=== PATIENT | female | born 1950 | race Caucasian/White ===

== ENCOUNTER 2016-06-07 04:14 | Emergency (ER) | payer MEDICARE, OTHER ==
--- NOTE | 2016-06-07 04:25 | ED Physician Documentation ---
General Adult - HISTORIAN Historian: patient - HPI Stated Complaint: Congestion, sob Chief Complaint: General Adult Onset: days ago Timing: still present Severity: moderate Further Comments: yes (Pt os a 65 yo female with nasal congestion and says that the congestion is making it difficult to breathe through her nose so that she becomes sob. No chest pain, n/v, diaphoresis. Pt has hx COPD, asthma and has been using her home O2 more than usual due to sob.) - ROS CONST: other (malaise) EYES/ENT: nasal drainage, nasal congestion CVS/RESP: shortness of breath (2nd to congestion) GI/: none MS/SKIN/LYMPH: none - PAST HX Past History: other (Asthma, COPD, GERD, HTN) Allergies/Adverse Reactions: Allergies Allergy/AdvReac Type Severity Reaction Status Date / Time adhesive Allergy Mild Rash Verified 06/07/16 04:56 amoxicillin [Amoxicillin] Allergy Mild Rash Verified 06/07/16 04:56 diphenhydramine HCl Allergy Mild Rash Verified 06/07/16 04:56 [From Benadryl] lisinopril Allergy Mild Rash Verified 06/07/16 04:56 doxycycline Allergy Verified 06/07/16 04:56 losartan [Losartan] Allergy Verified 06/07/16 04:56 codeine [Codeine] AdvReac Mild Rash Verified 06/07/16 04:56 Home Medications: Ambulatory Orders Medication Instructions Recorded Albuterol Sulfate 2.5 mg INH TID 05/01/16 Albuterol Sulfate [Proair HFA] 2 puff INH Q4 PRN 05/01/16 Diltiazem HCl [Diltiazem 24Hr Cd] 120 mg PO D 05/01/16 Fluticasone Propionate 220 Mcg 50 mcg COURTNEY BID 05/01/16 [Flovent Hfa] Fluticasone/Vilanterol [Breo 100 mcg INH D 05/01/16 Ellipta 100-25 Mcg INH] Gabapentin 300 mg PO TID 05/01/16 Lovastatin [Mevacor] 10 mg PO D 05/01/16 Montelukast Sodium [Singulair] 10 mg PO HS 05/01/16 Omeprazole [Prilosec] 20 mg PO D 05/01/16 Roflumilast [Daliresp] 500 mcg PO D 05/01/16 Sertraline HCl [Zoloft] 50 mg PO D 05/01/16 Tiotropium [place] [Spiriva] 1 puff INH D 05/01/16 Valsartan 80 mg PO D 05/01/16 - SOCIAL HX Smoking History: quit greater than 1 year, secondhand - FAMILY HX Family History: No - VITAL SIGNS Vital Signs: Vital Signs Temp Pulse Resp BP Pulse Ox 148/72 05/01/16 02:40 - REVIEWED ASSESSMENTS Nursing Assessment Reviewed: Yes Vitals Reviewed: Yes Progress - Progress Progress: CXR: Findings: Examination of the chest in single portable AP view 06/07/2016 0501 hours with comparison to examination of 05/01/2016 demonstrates lungs to be hyperinflated with diminished lung markings in the upper lung zones consistent with changes of emphysema. The cardiovascular and mediastinal silhouettes are stable. The aorta is atherosclerotic. There is prominence of the central pulmonary arteries consistent with pulmonary arterial hypertension. ER Solu-medrol 80 mg IV Duoneb HFN Rx Bactrim DS. Take one by mouth every 12 hrs for 10 days, 1st dose in ER. Prednisone 50 mg. Take one daily for 5 days. Nasal washes, once or twice daily. Continue flonase and other home medications. - EKG/XRAY/CT EKG: NSR (HR=85; normal axis; normal MD interval; normal EKG.) General Adult Physical Exam - PHYSICAL EXAM GENERAL APPEARANCE: moderate distress EENT: eye inspection normal, pharynx normal, other (sinus fullness) NECK: normal inspection, supple RESPIRATORY: chest non-tender, breath sounds normal, other (pt c/o resp distress 2ndary to congestion) CVS: reg rate & rhythm, heart sounds normal ABDOMEN: soft, no organomegaly, normal bowel sounds BACK: normal inspection, no CVA tenderness SKIN: warm/dry, normal color EXTREMITIES: non-tender, normal range of motion, no evidence of injury, no edema NEURO: oriented X3, motor nml, sensation nml Discharge Clincal Impression: Sinusitis Qualifiers: Sinusitis location: unspecified location Chronicity: acute Recurrence: not specified as recurrent Qualified Code(s): J01.90 - Acute sinusitis, unspecified Referrals: Robina Locke MD [Primary Care Provider] - Home Medications: Ambulatory Orders Albuterol Sulfate 2.5 mg INH TID 05/01/16 Albuterol Sulfate [Proair HFA] 2 puff INH Q4 PRN 05/01/16 Diltiazem HCl [Diltiazem 24Hr Cd] 120 mg PO D 05/01/16 Fluticasone Propionate 220 Mcg [Flovent Hfa] 50 mcg COURTNEY BID 05/01/16 Fluticasone/Vilanterol [Breo Ellipta 100-25 Mcg INH] 100 mcg INH D 05/01/16 Gabapentin 300 mg PO TID 05/01/16 Lovastatin [Mevacor] 10 mg PO D 05/01/16 Montelukast Sodium [Singulair] 10 mg PO HS 05/01/16 Omeprazole [Prilosec] 20 mg PO D 05/01/16 Roflumilast [Daliresp] 500 mcg PO D 05/01/16 Sertraline HCl [Zoloft] 50 mg PO D 05/01/16 Tiotropium [place] [Spiriva] 1 puff INH D 05/01/16 Valsartan 80 mg PO D 05/01/16 Condition: Good Disposition: 01 HOME, SELF-CARE Decision to Admit: NO Decision Time: 05:48
[2016-06-07 04:48] LABS: BASOPHILS % 0.4 (0.0-1.5); EOSINOPHILS % 2.4 % (0.0-6.8); LYMPHOCYTES # 1.3 # k/uL (0.6-4.0); MEAN CORPUSCULAR HEMOGLOBIN 26.2 pg (28.0-34.0); MONOCYTES # 0.5 # k/uL (0.0-0.9); MONOCYTES % 5.7 % (0.0-11.0); NEUTROPHILS # 6.4 # k/uL (1.4-7.7)
[2016-06-07] MEDS ORDERED: methylPREDNISolone SOD SUCC 40 MG/ML VIAL IVP ONE (04:49)
[2016-06-07 05:02] LABS: eGFR (African) > 60; eGFR (Non-African) > 60
[2016-06-07] MEDS ORDERED: IPRATROPIUM/ALBUTEROL SULFATE 3 ML AMPUL.NEB NEB ONE (05:18)
--- NOTE | 2016-06-07 05:51 | Diagnostic Imaging Report ---
[facility] [address] [facility] [address] [place], [place]. [address] ~ ~ ~ ~ Report Submission Date: Jun 07, 2016 5:14:15 AM MATERIAL CLERK Patient ~ Study Name: JUNE ROWE ~ Date: Jun 07, 2016 5:01:06 AM MATERIAL CLERK MRN: [id number] ~ Modality Type: CR Gender: F ~ Description: CHEST : 46 ~ Institution: [facility] Physician: CHRISTAL PARRA ~ ~ ~ ~ Chest - one-view Clinical history: ~Shortness of breath. ~Nasal congestion. Findings: ~Examination of the chest in single portable AP view 06/07/2016 0501 hours with comparison to examination of 05/01/2016 demonstrates lungs to be hyperinflated with diminished lung markings in the upper lung zones consistent with changes of emphysema. ~The cardiovascular and mediastinal silhouettes are stable. ~The aorta is atherosclerotic. ~There is prominence of the central pulmonary arteries consistent with pulmonary arterial hypertension. Impression: 1. ~No significant change. 2. ~Aortic atherosclerosis. 3. ~Emphysema. 4. ~Pulmonary arterial hypertension. ~ Electronically signed on Jun 07, 2016 5:14:15 AM MATERIAL CLERK by: Presley EUCEDA
[2016-06-07] MEDS ORDERED: SULFAMETHOXAZOLE/TRIMETHOPRIM 1 EACH TABLET PO ONE ×3 (05:52→05:55)
[2016-06-07 06:37] VITALS: BP 115/94
[2016-06-07] MEDS ORDERED: SULFAMETHOXAZOLE/TRIMETHOPRIM 1 EACH TABLET PO SCH (09:00)
== END 2016-06-07 06:30 | disposition home or self-care (01) ==
LOC: ED 04:14
DX: J01.90 Acute sinusitis, unspecified (principal); J44.1 Chronic obstructive pulmonary disease with (acute) exacerbation; Z99.81 Dependence on supplemental oxygen
CPT/HCPCS: 71010; 80053; 82550; 84484; 85025; 93005; 96374; 99283; A9270; J1030; J2920; S1016

== ENCOUNTER 2016-06-24 20:12 | Emergency (ER) | payer MEDICARE, OTHER ==
[2016-06-24 21:05] LABS: BASOPHILS % 0.2 (0.0-1.5); EOSINOPHILS % 0.9 % (0.0-6.8); LYMPHOCYTES # 0.9 # k/uL (0.6-4.0); MONOCYTES # 0.2 # k/uL (0.0-0.9); MONOCYTES % 3.7 % (0.0-11.0); NEUTROPHILS # 5.4 # k/uL (1.4-7.7)
[2016-06-24 21:17] LABS: eGFR (African) > 60; eGFR (Non-African) > 60
--- NOTE | 2016-06-24 21:44 | ED Physician Documentation ---
Upper Respiratory Symptoms - HISTORIAN Historian: patient - HPI Stated Complaint: Shortness of Breath Chief Complaint: Cough/ Upper Respiratory Onset: other (06/07/16) Duration: constant Context: denies: recent foreign travel, insect bite(s), tick(s), recent chemotherapy Severity: moderate Associated Symptoms: runny nose, sinus pain, sinus drainage, productive cough Further Comments: yes (65 year old female patient presents with complaints of cough, congestion, sinus headache and SOB. C/O being unable to breath due "being stopped up".) - ROS CONST/EYES: denies: weakness, eye redness, eye itching CVS/RESP: shortness of breath. denies: chest pain, palpitations LYMPH: denies: leg swelling, rash, ankle swelling GI/: none. denies: nausea, diarrhea NEURO/PSYCH: denies: fainting, dizziness MS/SKIN: denies: joint pain, muscle aches, rash - PAST HX Lung Disease: COPD, other (O2 daily) PE Risk Factors: hypertension Other History: other (GI bleed, HLD) Surgeries/Procedures: other (cataract, TKR, Exp lap - endometriosis) Allergies/Adverse Reactions: Allergies Allergy/AdvReac Type Severity Reaction Status Date / Time adhesive Allergy Mild Rash Verified 06/24/16 20:23 amoxicillin [Amoxicillin] Allergy Mild Rash Verified 06/24/16 20:23 diphenhydramine HCl Allergy Mild Rash Verified 06/24/16 20:23 [From Benadryl] lisinopril Allergy Mild Rash Verified 06/24/16 20:23 doxycycline Allergy Verified 06/24/16 20:23 losartan [Losartan] Allergy Verified 06/24/16 20:23 codeine [Codeine] AdvReac Mild Rash Verified 06/24/16 20:23 Home Medications: Ambulatory Orders Medication Instructions Recorded Albuterol Sulfate 2.5 mg INH TID 05/01/16 Albuterol Sulfate [Proair HFA] 2 puff INH Q4 PRN 05/01/16 Diltiazem HCl [Diltiazem 24Hr Cd] 120 mg PO DAILY 05/01/16 Fluticasone Propionate 220 Mcg 50 mcg COURTNEY BID 05/01/16 [Flovent Hfa] Fluticasone/Vilanterol [Breo 100 mcg INH DAILY 05/01/16 Ellipta 100-25 Mcg INH] Gabapentin 300 mg PO TID 05/01/16 Lovastatin [Mevacor] 10 mg PO DAILY 05/01/16 Montelukast Sodium [Singulair] 10 mg PO HS 05/01/16 Omeprazole [Prilosec] 20 mg PO DAILY 05/01/16 Roflumilast [Daliresp] 500 mcg PO DAILY 05/01/16 Sertraline HCl [Zoloft] 50 mg PO DAILY 05/01/16 Tiotropium [place] [Spiriva] 1 puff INH DAILY 05/01/16 Valsartan 80 mg PO DAILY 05/01/16 Levofloxacin [Levaquin] 500 mg PO DAILY #7 tablet 06/24/16 Levofloxacin [Levofloxacin] 500 mg PO DAILY 06/24/16 - SOCIAL HX Smoking History: non-smoker, quit greater than 1 year - FAMILY HX Family History: denies: none - VITAL SIGNS Vital Signs: Vital Signs Temp Pulse Resp BP Pulse Ox 98.7 F 99 H 26 H 153/88 98 06/24/16 20:15 06/24/16 21:30 06/24/16 20:15 06/24/16 20:15 06/24/16 21:30 - REVIEWED ASSESSMENTS Nursing Assessment Reviewed: Yes Vitals Reviewed: Yes Progress - Progress Progress: Extensive discussion with patient regarding lab and CT findings. Strongly encouraged to follow up with ENT, phone numbers provided. Patient states she has an appointment with medical consultant on Wednesday. Will treat with IM depo medrol , due to significant nasal mucosal edema, will continue 1 week of levaquin. Patient has PCN allergy, unsure of cephalosporin. Needs sinus culture. Lab and disc sent with patient to take to pulm. appointment. ED Results Lab/Radiology - Lab Results Lab Results: Lab Results 06/24/16 06/24/16 06/24/16 20:55 20:55 20:55 WBC 6.80 K/ul K/ul (4.00-12.00) RBC 4.58 M/ul M/ul (3.90-5.20) Hgb 11.9 g/dL L g/dL (12.0-16.0) Hct 37.6 % % (34.5-46.5) MCV 82.1 fl fl (80.0-100.0) MCH 26.0 pg L pg (28.0-34.0) MCHC 31.6 g/dL g/dL (30.0-36.0) RDW 14.1 % % (11.3-14.3) Plt Count 241 K/mm3 K/mm3 (130-400) Neut % (Auto) 79.9 % H % (39.0-79.0) Lymph % (Auto) 13.8 % L % (16.0-50.0) [place] % (Auto) 3.7 % % (0.0-11.0) Eos % (Auto) 0.9 % % (0.0-6.8) Baso % (Auto) 0.2 (0.0-1.5) Neut # 5.4 # k/uL # k/uL (1.4-7.7) Lymph # 0.9 # k/uL # k/uL (0.6-4.0) [place] # 0.2 # k/uL # k/uL (0.0-0.9) Eos # 0.1 # k/uL # k/uL (0.0-0.6) Baso # 0.0 # k/uL # k/uL (0.0-0.5) Reactive Lymphs % 1.5 % % (0.0-5.0) Reactive Lymphs # 0.1 # k/uL # k/uL (0.0-0.8) Sodium 137 mmol/L mmol/L (136-145) Potassium 3.5 mmol/L mmol/L (3.5-5.0) Chloride 100 mmol/L mmol/L (98-110) Carbon Dioxide 27 mmol/L mmol/L (20-32) BUN 7 mg/dL L mg/dL (10-26) Creatinine 0.6 mg/dL mg/dL (0.4-1.5) Estimated Creat Clear 137 Est GFR ( Amer) > 60 (60 - ) Est GFR (Non-Af Amer) > 60 (60 - ) Glucose 113 mg/dL H mg/dL (70-99) Calcium 9.8 mg/dL mg/dL (8.5-10.5) Total Bilirubin 0.3 mg/dL mg/dL (0.2-1.2) AST 19 U/L U/L (0-41) ALT 14 U/L U/L (0-45) Alkaline Phosphatase 80 U/L U/L (46-116) NT-Pro-B Natriuret Pep 19.8 pg/mL pg/mL (15.0-125.0) Total Protein 7.2 g/dL g/dL (6.0-8.5) Albumin 4.8 g/dL g/dL (3.0-5.5) - Radiology Radiology Impressions: CT sinuses History: Sinusitis Technique: Images through the paranasal sinuses were obtained without contrast. Multiplanar reconstructions were performed. Findings: Significant mucous membrane thickening is noted in the maxillary sinuses, frontal sinuses, ethmoid air cells and right sphenoid sinus. There is no air fluid level or abnormal bone destruction. There is no fracture. Impression: Pansinusitis. Chest, PA and lateral, 3 images History: Cough Findings: No infiltrate, effusion or pneumothorax is present. The lungs are hyperinflated, consistent with emphysema. Heart size and pulmonary vascularity are normal. Since 07 June 2016, no significant change has occurred. Impression: 1. Emphysema. 2. No new abnormality. - Orders Orders: ED Orders Category Date Time Status Continuous EKG monitoring Q30M Care 06/24/16 20:26 Active Continuous Pulse Oximetry Q30M Care 06/24/16 20:[address] Saline Lock/IV NOW Care 06/24/16 20:26 Active CHEST 2 VIEW [CHEST P.A.&LAT 2 VIEWS] [RAD] Stat Exams 06/24/[address] MAXILLOFACIAL W/O DYE Stat Exams 06/24/16 Taken CBC/PLATELET/DIFF Stat Lab 06/24/16 20:55 Completed CMP Stat Lab 06/24/16 20:55 Completed NT-proBNP Stat Lab 06/24/16 20:55 Completed UA W/MICRO IF INDICATED Stat Lab 06/24/16 20:26 Ordered methylPREDNISolone ACETATE [Depo-Medrol] Med 06/24/16 21:53 Once 80 mg IM NOW ONE Oxygen Daily Oxygen 06/24/16 20:30 Ordered Upper Respiratory Symptoms - EXAM General Appearance: mild distress EENT: eyes nml inspection, lids & conjunct. nml, PERRL, ear nml, pain over sinuses, frontal, maxillary, ethmoid, mucosal edema (left nare with significant mucosal edema vs polyp), purulent nasal drainage, pharynx nml, airway nml Respiratory: no resp. 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 Neuro/Psych: oriented x3, neuro intact, mood/affect nml, CN's nml as tested Discharge Clincal Impression: Cough Pansinusitis Qualifiers: Chronicity: acute Recurrence: non-recurrent Qualified Code(s): J01.40 - Acute pansinusitis, unspecified Prescriptions: Levofloxacin [Levaquin] 500 mg PO DAILY #7 tablet Referrals: Robina Locke MD [Primary Care Provider] - 2 Days Home Medications: Ambulatory Orders Albuterol Sulfate 2.5 mg INH TID 05/01/16 Albuterol Sulfate [Proair HFA] 2 puff INH Q4 PRN 05/01/16 Diltiazem HCl [Diltiazem 24Hr Cd] 120 mg PO DAILY 05/01/16 Fluticasone Propionate 220 Mcg [Flovent Hfa] 50 mcg COURTNEY BID 05/01/16 Fluticasone/Vilanterol [Breo Ellipta 100-25 Mcg INH] 100 mcg INH DAILY 05/01/16 Gabapentin 300 mg PO TID 05/01/16 Lovastatin [Mevacor] 10 mg PO DAILY 05/01/16 Montelukast Sodium [Singulair] 10 mg PO HS 05/01/16 Omeprazole [Prilosec] 20 mg PO DAILY 05/01/16 Roflumilast [Daliresp] 500 mcg PO DAILY 05/01/16 Sertraline HCl [Zoloft] 50 mg PO DAILY 05/01/16 Tiotropium [place] [Spiriva] 1 puff INH DAILY 05/01/16 Valsartan 80 mg PO DAILY 05/01/16 Levofloxacin [Levaquin] 500 mg PO DAILY #7 tablet 06/24/16 Levofloxacin [Levofloxacin] 500 mg PO DAILY 06/24/16 Condition: Stable Disposition: HOME, SELF-CARE Decision to Admit: NO Decision Time: 22:13
[2016-06-24] MEDS ORDERED: methylPREDNISolone ACETATE 80 MG/ML VIAL IM ONE (21:53)
[2016-06-24 22:17] VITALS: BP 143/89
--- NOTE | 2016-06-25 07:15 | Diagnostic Imaging Report ---
[facility] [address] [facility].[address] [address] Report Submission Date: Jun 24, 2016 9:28:09 PM ASSEMBLY REPAIRER Patient Study Name: JUNE ROWE Date: Jun 24, 2016 8:50:43 PM ASSEMBLY REPAIRER MRN: [id number] Modality Type: CR Gender: F Description: CHEST : 46 Institution: [facility] Physician: DANIELE RUBIN Chest, PA and lateral, 3 images History: Cough Findings: No infiltrate, effusion or pneumothorax is present. The lungs are hyperinflated, consistent with emphysema. Heart size and pulmonary vascularity are normal. Since 07 June 2016, no significant change has occurred. Impression: 1. Emphysema. 2. No new abnormality. Electronically signed on Jun 24, 2016 9:28:09 PM ASSEMBLY REPAIRER by: Dell EUCEDA
--- NOTE | 2016-06-25 07:16 | Diagnostic Imaging Report ---
[facility] [address] [facility] [address] [address] Report Submission Date: Jun 24, 2016 9:37:56 PM CONE TREATER Patient Study Name: JUNE ROWE Date: Jun 24, 2016 9:04:35 PM CONE TREATER MRN: [id number] Modality Type: CT\SR Gender: F Description: CT MAXILLOFACIAL W/O D : 46 Institution: [facility] Physician: DANIELE RUBIN CT sinuses History: Sinusitis Technique: Images through the paranasal sinuses were obtained without contrast. Multiplanar reconstructions were performed. Findings: Significant mucous membrane thickening is noted in the maxillary sinuses, frontal sinuses, ethmoid air cells and right sphenoid sinus. There is no air fluid level or abnormal bone destruction. There is no fracture. Impression: Pansinusitis. Electronically signed on Jun 24, 2016 9:37:56 PM CONE TREATER by: Dell EUCEDA
== END 2016-06-24 22:15 | disposition home or self-care (01) ==
LOC: ED 20:12
DX: J01.40 Acute pansinusitis, unspecified (principal); R05 Cough
CPT/HCPCS: 70486; 71020; 80053; 83880; 85025; J1040; 87400; 96372; 99282; S1016

== ENCOUNTER 2016-08-27 02:44 | Emergency (ER) | payer MEDICARE, OTHER ==
[2016-08-27] MEDS: IPRATROPIUM/ALBUTEROL SULFATE 3 ML AMPUL.NEB NEB ONE (03:10)
[2016-08-27 03:25] VITALS: BP 167/69
[2016-08-27 03:46] LABS: BASOPHILS % 0.5 (0.0-1.5); EOSINOPHILS % 1.7 % (0.0-6.8); LYMPHOCYTES # 1.2 # k/uL (0.6-4.0); MEAN CORPUSCULAR HEMOGLOBIN 26.3 pg (28.0-34.0); MONOCYTES # 0.3 # k/uL (0.0-0.9); MONOCYTES % 3.2 % (0.0-11.0); NEUTROPHILS # 6.9 # k/uL (1.4-7.7)
[2016-08-27 03:51] LABS: eGFR (African) > 60; eGFR (Non-African) > 60
--- NOTE | 2016-08-27 04:01 | ED Physician Documentation ---
General Adult - HISTORIAN Historian: patient - HPI Stated Complaint: Increased Dyspnea, increased sinus congestion and cough Chief Complaint: General Adult Onset: days ago Timing: worse Further Comments: yes (65 year old female patient presents with nasal congestion , SOB and dyspnea related to her nasal drainage. States she can't breath through her nose, "my oxygen isn't helping") - ROS CONST: recent illness (pansinusitis) EYES/ENT: sore throat, nasal drainage, nasal congestion CVS/RESP: shortness of breath, cough. denies: chest pain GI/: none MS/SKIN/LYMPH: none NEURO/PSYCH: headache. denies: fainting, dizziness, difficulty with speech, anxiety - PAST HX Past History: COPD, hypertension Other History: other (Pansinusitis, GI bleed, HLD) Allergies/Adverse Reactions: Allergies Allergy/AdvReac Type Severity Reaction Status Date / Time adhesive Allergy Mild Rash Verified 08/27/16 03:12 amoxicillin [Amoxicillin] Allergy Mild Rash Verified 08/27/16 03:12 diphenhydramine HCl Allergy Mild Rash Verified 08/27/16 03:12 [From Benadryl] lisinopril Allergy Mild Rash Verified 08/27/16 03:12 doxycycline Allergy Verified 08/27/16 03:12 losartan [Losartan] Allergy Verified 08/27/16 03:12 codeine [Codeine] AdvReac Mild Rash Verified 08/27/16 03:12 Home Medications: Ambulatory Orders Medication Instructions Recorded Albuterol Sulfate 2.5 mg INH TID 05/01/16 Albuterol Sulfate [Proair HFA] 2 puff INH Q4 PRN 05/01/16 Diltiazem HCl [Diltiazem 24Hr Cd] 120 mg PO DAILY 05/01/16 Fluticasone Propionate 220 Mcg 50 mcg COURTNEY BID 05/01/16 [Flovent Hfa] Fluticasone/Vilanterol [Breo 100 mcg INH DAILY 05/01/16 Ellipta 100-25 Mcg INH] Gabapentin 300 mg PO TID 05/01/16 Lovastatin [Mevacor] 10 mg PO DAILY 05/01/16 Montelukast Sodium [Singulair] 10 mg PO HS 05/01/16 Omeprazole [Prilosec] 20 mg PO DAILY 05/01/16 Roflumilast [Daliresp] 500 mcg PO DAILY 05/01/16 Sertraline HCl [Zoloft] 50 mg PO DAILY 05/01/16 Valsartan 80 mg PO DAILY 05/01/16 Levofloxacin [Levaquin] 500 mg PO DAILY #10 tablet 08/27/16 Methylprednisolone [Medrol] 4 mg PO DAILY #1 tab.ds.pk 08/27/16 Umeclidinium [place] [Incruse 1 puff IH D 08/27/16 Ellipta] - SOCIAL HX Smoking History: quit greater than 1 year - FAMILY HX Family History: Yes - VITAL SIGNS Vital Signs: Vital Signs Temp Pulse Resp BP Pulse Ox 98.1 F 91 H 24 167/69 90 L 08/27/16 02:45 08/27/16 02:45 08/27/16 02:45 08/27/16 02:45 08/27/16 02:45 - REVIEWED ASSESSMENTS Nursing Assessment Reviewed: Yes Vitals Reviewed: Yes Progress - Progress Progress: At discharge patient reports she went to the ENT doctor in [place], completed a 21 day antibiotic and steroid course along with allergy testing. Patient cannot recall name of antibiotic. Will treat with levaquin and medrol dose pack. Instructed to follow up with ENT. ED Results Lab/Radiology - Lab Results Lab Results: Lab Results 08/27/16 08/27/16 03:20 03:20 WBC 8.70 K/ul K/ul (4.00-12.00) RBC 4.96 M/ul M/ul (3.90-5.20) Hgb 13.1 g/dL g/dL (12.0-16.0) Hct 41.4 % % (34.5-46.5) MCV 83.4 fl fl (80.0-100.0) MCH 26.3 pg L pg (28.0-34.0) MCHC 31.6 g/dL g/dL (30.0-36.0) RDW 15.0 % H % (11.3-14.3) Plt Count 210 K/mm3 K/mm3 (130-400) Neut % (Auto) 78.8 % % (39.0-79.0) Lymph % (Auto) 14.4 % L % (16.0-50.0) [place] % (Auto) 3.2 % % (0.0-11.0) Eos % (Auto) 1.7 % % (0.0-6.8) Baso % (Auto) 0.5 (0.0-1.5) Neut # 6.9 # k/uL # k/uL (1.4-7.7) Lymph # 1.2 # k/uL # k/uL (0.6-4.0) [place] # 0.3 # k/uL # k/uL (0.0-0.9) Eos # 0.2 # k/uL # k/uL (0.0-0.6) Baso # 0.0 # k/uL # k/uL (0.0-0.5) Reactive Lymphs % 1.4 % % (0.0-5.0) Reactive Lymphs # 0.1 # k/uL # k/uL (0.0-0.8) Sodium 142 mmol/L mmol/L (136-145) Potassium 3.3 mmol/L L mmol/L (3.5-5.0) Chloride 108 mmol/L mmol/L (98-110) Carbon Dioxide 30 mmol/L mmol/L (20-32) BUN 9 mg/dL L mg/dL (10-26) Creatinine 0.6 mg/dL mg/dL (0.4-1.5) Estimated Creat Clear 134 Est GFR ( Amer) > 60 (60 - ) Est GFR (Non-Af Amer) > 60 (60 - ) Glucose 112 mg/dL H mg/dL (70-99) Calcium 9.8 mg/dL mg/dL (8.5-10.5) Total Bilirubin 0.4 mg/dL mg/dL (0.2-1.2) AST 22 U/L U/L (0-41) ALT 20 U/L U/L (0-45) Alkaline Phosphatase 76 U/L U/L (46-116) Total Protein 7.7 g/dL g/dL (6.0-8.5) Albumin 5.1 g/dL g/dL (3.0-5.5) - Radiology Radiology Impressions: Chest - two views Clinical history: Dyspnea since yesterday. Congestion. Findings: Examination of the chest in PA and lateral views with comparison to examination of 06/24/2016 demonstrates lungs to be hyperinflated with increase in the AP diameter the chest consistent with changes of emphysema. Cardiovascular and mediastinal silhouettes are stable. There is no coalescent infiltrate. Impression: 1. No significant change. 2. Emphysema. Electronically signed on Aug 27, 2016 3:44:49 AM CDT by: Presley Zavala - Orders Orders: ED Orders Category Date Time Status CHEST 2 VIEW [CHEST P.A.&LAT 2 VIEWS] [RAD] Stat Exams 08/27/16 Ordered CBC/PLATELET/DIFF Stat Lab 08/27/16 03:20 Completed CMP Stat Lab 08/27/16 03:20 Completed Ipratropium/Albuterol Sulfate [Duoneb] Med 08/27/16 02:58 Discontinued 3 ml NEB NOW ONE Oxygen Daily Oxygen 08/27/16 03:00 Ordered General Adult Physical Exam - PHYSICAL EXAM GENERAL APPEARANCE: mild distress EENT: eye inspection normal, pharynx normal, no signs of dehydration, JEMAL, no nystagmus, TM's nml, purulent nasal drainage, other (tenderness over ethmoid sinus, frontal and maxillary) RESPIRATORY: no resp distress, chest non-tender, breath sounds normal CVS: reg rate & rhythm, heart sounds normal, equal pulses, no murmur, no gallop , PMI nml, no JVD, no friction rub, 24 ABDOMEN: soft, no organomegaly, normal bowel sounds, no abdominal bruit, no distension SKIN: normal color, warm/dry, NR, INT, PAL, DR EXTREMITIES: non-tender, normal range of motion, no evidence of injury, no edema , J, 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: oriented X3, CN's nml as tested, motor nml, sensation nml, mood/affect nml Discharge Clincal Impression: Sinusitis Qualifiers: Sinusitis location: ethmoidal Chronicity: acute Recurrence: recurrent Qualified Code(s): J01.21 - Acute recurrent ethmoidal sinusitis Pansinusitis Qualifiers: Chronicity: acute Recurrence: recurrent Qualified Code(s): J01.41 - Acute recurrent pansinusitis Prescriptions: Levofloxacin [Levaquin] 500 mg PO DAILY #10 tablet Referrals: Robina Locke MD [Primary Care Provider] - 2 Days Additional Instructions: airflight attendants supervisor an over the counter decongestant at your pharmacy for patient's with hypertension. You may want to try Vicks rub on your chest and/or feet Cough drops as needed for cough and sore throat. Increase your fluid intake juices, hot tea, non-caffeinated beverages Use a humidifier in the room where you sleep. You can also sit in a steam filled bathroom 1-2 times a day. Tylenol or Ibuprofen as needed for fever, pain and body aches. Start daily allergy medication such as Claritin, Daisy or Zyrtec. Start a daily nasal spray such as Flonase or Nasonex You may benefit from the use of a netti pot follow package instructions. See your primary care doctor after you have completed your antibiotic if you symptoms have not resolved. Many times it takes multiple rounds of antibiotics to resolve a sinus infection. Home Medications: Ambulatory Orders Albuterol Sulfate 2.5 mg INH TID 05/01/16 Albuterol Sulfate [Proair HFA] 2 puff INH Q4 PRN 05/01/16 Diltiazem HCl [Diltiazem 24Hr Cd] 120 mg PO DAILY 05/01/16 Fluticasone Propionate 220 Mcg [Flovent Hfa] 50 mcg COURTNEY BID 05/01/16 Fluticasone/Vilanterol [Breo Ellipta 100-25 Mcg INH] 100 mcg INH DAILY 05/01/16 Gabapentin 300 mg PO TID 05/01/16 Lovastatin [Mevacor] 10 mg PO DAILY 05/01/16 Montelukast Sodium [Singulair] 10 mg PO HS 05/01/16 Omeprazole [Prilosec] 20 mg PO DAILY 05/01/16 Roflumilast [Daliresp] 500 mcg PO DAILY 05/01/16 Sertraline HCl [Zoloft] 50 mg PO DAILY 05/01/16 Valsartan 80 mg PO DAILY 05/01/16 Levofloxacin [Levaquin] 500 mg PO DAILY #10 tablet 08/27/16 Methylprednisolone [Medrol] 4 mg PO DAILY #1 tab.ds.pk 08/27/16 Umeclidinium [place] [Incruse Ellipta] 1 puff IH D 08/27/16 Condition: Stable Disposition: 01 HOME, SELF-CARE Decision to Admit: NO Decision Time: 04:01
--- NOTE | 2016-08-27 20:42 | Diagnostic Imaging Report ---
[facility] [id number] [facility].[address] [address] Report Submission Date: Aug 27, 2016 3:44:49 AM CDT Patient Study Name: JUNE ROWE Date: Aug 27, 2016 3:27:04 AM CDT MRN: [id number] Modality Type: CR Gender: F Description: CHEST : 46 Institution: [facility] Physician: JM SANABRIA (LOAN ANALYST) - ER Chest - two views Clinical history: Dyspnea since yesterday. Congestion. Findings: Examination of the chest in PA and lateral views with comparison to examination of 06/24/2016 demonstrates lungs to be hyperinflated with increase in the AP diameter the chest consistent with changes of emphysema. Cardiovascular and mediastinal silhouettes are stable. There is no coalescent infiltrate. Impression: 1. No significant change. 2. Emphysema. Electronically signed on Aug 27, 2016 3:44:49 AM CDT by: Presley EUCEDA
== END 2016-08-27 04:15 | disposition home or self-care (01) ==
LOC: ED 02:44
DX: J01.21 Acute recurrent ethmoidal sinusitis (principal); J01.41 Acute recurrent pansinusitis
CPT/HCPCS: 71020; 80053; 85025; 99283

== ENCOUNTER 2018-04-22 20:46 | Inpatient (IN) | payer MEDICARE, OTHER ==
[2018-04-22] MEDS ORDERED: methylPREDNISolone SOD SUCC 125 MG/2 ML VIAL IVP ONE (21:04)
[2018-04-22] MEDS ORDERED: IPRATROPIUM/ALBUTEROL SULFATE 3 ML AMPUL.NEB NEB ONE (21:04)
[2018-04-22 21:28] LABS: MEAN CORPUSCULAR HEMOGLOBIN 24.3 pg (28.0-34.0); MONOCYTES % 2.9 % (0.0-11.0)
[2018-04-22 21:29] LABS: BASOPHILS % 0.3 (0.0-1.5); EOSINOPHILS % 1.2 % (0.0-6.8); NEUTROPHILS # 13.6 # k/uL (1.4-7.7)
[2018-04-22] MEDS ORDERED: ALBUTEROL SULFATE 2.5 MG/3 ML AMPUL.NEB NEB ONE (21:41)
--- NOTE | 2018-04-22 21:42 | ED Physician Documentation ---
General Adult - HISTORIAN Historian: patient - HPI Stated Complaint: shortness of air Chief Complaint: Dyspnea Onset: other (since end of march ) Timing: still present, worse Severity: mild Further Comments: yes (She reports increased congestion and shortness of air for last few weeks and she was treated by her PCP with Levaquin and steriods (both ended 04.11.2018) and she denies any relief in symptoms. She states over the last few days her shortness of air has increased. No fever. Cough is tightening . No swelling. No rash. No sick contacts . She reports last Albuterol neb was about 2 hours ago with mild relief) Last known Well Code/Unknown Code: Unknown - ROS CONST: weakness EYES/ENT: nasal drainage, nasal congestion CVS/RESP: shortness of breath, cough. denies: chest pain GI/: denies: abdominal pain, vomiting, nausea MS/SKIN/LYMPH: denies: rash NEURO/PSYCH: denies: headache, dizziness - PAST HX Past History: hypertension Immunizations: UTD Allergies/Adverse Reactions: Allergies Allergy/AdvReac Type Severity Reaction Status Date / Time amoxicillin Allergy Mild Rash Verified 04/22/18 21:55 codeine Allergy Mild Rash Verified 04/22/18 21:55 doxycycline Allergy Mild Rash Verified 04/22/18 21:55 lisinopril Allergy Mild Rash Verified 04/22/18 21:55 losartan Allergy Mild Rash Verified 04/22/18 21:55 adhesive tape AdvReac Mild Rash Verified 04/22/18 21:55 Home Medications: Ambulatory Orders Medication Instructions Recorded Albuterol Sulfate [Proair HFA] 2 puff INH Q4 PRN 05/01/16 Fluticasone Propionate 220 Mcg 50 mcg COURTNEY BID 05/01/16 [Flovent Hfa] Montelukast Sodium [Singulair] 10 mg PO HS 05/01/16 Omeprazole [Prilosec] 20 mg PO DAILY 05/01/16 Sertraline HCl [Zoloft] 100 mg PO DAILY 05/01/16 Albuterol Sulfate [Proair HFA] 8.5 gm INH Q4 04/22/18 Hydrochlorothiazide 25 mg PO DAILY 04/22/18 Lovastatin [Mevacor] 10 mg PO DAILY 04/22/18 Roflumilast [Daliresp] 500 mcg PO DAILY 04/22/18 - SOCIAL HX Smoking History: quit greater than 1 year Alcohol Use: none Drug Use: none - FAMILY HX Family History: No - VITAL SIGNS Vital Signs: Vital Signs Temp Pulse Resp BP Pulse Ox 156/81 06/01/17 21:45 - REVIEWED ASSESSMENTS Nursing Assessment Reviewed: Yes Vitals Reviewed: Yes Progress - Progress Progress: 1040: discussed case with Dr Pham will admit inpt DG ED Results Lab/Radiology - Lab Results Lab Results: Lab Results 04/22/18 21:24 WBC 15.10 K/ul H K/ul (4.00-12.00) RBC 4.36 M/ul M/ul (3.90-5.20) Hgb 10.6 g/dL L g/dL (12.0-16.0) Hct 32.6 % L % (34.5-46.5) MCV 75.0 fl L fl (80.0-100.0) MCH 24.3 pg L pg (28.0-34.0) MCHC 32.5 g/dL g/dL (30.0-36.0) RDW 15.9 % H % (11.3-14.3) Plt Count 211 K/mm3 K/mm3 (130-400) Neut % (Auto) 89.9 % H % (39.0-79.0) Lymph % (Auto) 5.7 % L % (16.0-50.0) [place] % (Auto) 2.9 % % (0.0-11.0) Eos % (Auto) 1.2 % % (0.0-6.8) Baso % (Auto) 0.3 (0.0-1.5) Neut # (Auto) 13.6 # k/uL H # k/uL (1.4-7.7) Lymph # (Auto) 0.9 # k/uL # k/uL (0.6-4.0) [place] # (Auto) 0.4 # k/uL # k/uL (0.0-0.9) Eos # (Auto) 0.2 # k/uL # k/uL (0.0-0.6) Baso # (Auto) 0.1 # k/uL # k/uL (0.0-0.5) - Radiology Radiology Impressions: PA and lateral chest CLINICAL HISTORY: Shortness of breath. Difficulty breathing for 2 weeks. FINDINGS: Examination of the chest in PA and lateral views with no prior film for comparison demonstrates lungs to be hyperinflated with flattening of the hemidiaphragms and increase in the AP diameter of the chest consistent with emphysema. There is no coalescent infiltrate. Cardiac silhouette is within normal limits and the aorta is atherosclerotic. IMPRESSION: Emphysema. Aortic atherosclerosis. 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 by: Presley Zavala - Orders Orders: ED Orders Category Date Time Status IV Started NOW Care 04/22/18 21:05 Active CHEST 2VIEW [RAD] Stat Exams 04/22/18 Ordered BNP [NT-proBNP] Stat Lab 04/22/18 Ordered CBC/PLATELET/DIFF Routine Lab 04/22/18 Ordered CMP Routine Lab 04/22/18 Ordered 0.9 % Sodium Chloride [Normal Saline] 1,000 ml Med 04/22/18 21:30 Ordered IV Q8H Albuterol Sulfate [Ventolin] Med 04/22/18 21:41 Once 2.5 mg NEB NOW ONE Ipratropium/Albuterol Sulfate [Duoneb] Med 04/22/18 21:04 Discontinued 3 ml NEB NOW ONE methylPREDNISolone SOD SUCC [Solu-MEDROL] Med 04/22/18 21:04 Discontinued 125 mg IVP NOW ONE EKG WITH COMPARISON Stat Ther 04/22/18 Ordered General Adult Physical Exam - PHYSICAL EXAM GENERAL APPEARANCE: mild distress EENT: eye inspection normal, ENT inspection normal, dry mucous membranes NECK: normal inspection RESPIRATORY: wheezes, rhonchi, other (mild resp distress with speaking - 3 words with shortness of air. Post treatment increased air movement with exp wheezing through out. she reports less shortness of air ) CVS: reg rate & rhythm ABDOMEN: soft, no distension SKIN: warm/dry EXTREMITIES: non-tender, normal range of motion NEURO: oriented X3 Discharge Clincal Impression: COPD with exacerbation Referrals: Edy Salmon MD [Primary Care Provider] - 2 Days Condition: Fair Disposition: ADMITTED INPATIENT Decision to Admit: [id number] Date of Decison to Admit: 04/22/18 Decision Time: 22:41
[2018-04-22 21:49] LABS: eGFR (Non-African) > 60
[2018-04-22] MEDS: 0.9 % SODIUM CHLORIDE 1,000 ML IV SCH (22:14)
[2018-04-22] MEDS ORDERED: AZITHROMYCIN 500 MG in 0.9 % SODIUM CHLORIDE 250 ML IV SCH (23:00)
[2018-04-22] MEDS ORDERED: AZITHROMYCIN 500 MG VIAL IV ONE (23:31)
[2018-04-22] MEDS ORDERED: 0.9 % SODIUM CHLORIDE 250 ML IV ONE (23:31)
[2018-04-23] MEDS: 0.9 % SODIUM CHLORIDE 1,000 ML IV SCH ×5 (00:02→17:32)
[2018-04-23 01:22] VITALS: BMI 27.3
--- NOTE | 2018-04-23 01:24 | Diagnostic Imaging Report ---
DEJAH MISHRA [facility] [address] [facility].[address] [address] Report Submission Date: Apr 22, 2018 10:07:58 PM THROW OUT CLERK Patient Study Name: JUNE ROWE Date: Apr 22, 2018 9:36:53 PM THROW OUT CLERK Modality Type: DX Gender: F Description: CHEST : 46 Institution: [facility] Physician: DEJAH MISHRA PA and lateral chest CLINICAL HISTORY: Shortness of breath. Difficulty breathing for 2 weeks. FINDINGS: Examination of the chest in PA and lateral views with no prior film for comparison demonstrates lungs to be hyperinflated with flattening of the hemidiaphragms and increase in the AP diameter of the chest consistent with emphysema. There is no coalescent infiltrate. Cardiac silhouette is within normal limits and the aorta is atherosclerotic. IMPRESSION: Emphysema. Aortic atherosclerosis. Electronically signed on Apr 22, 2018 10:07:58 PM THROW OUT CLERK by: Presley EUCEDA
[2018-04-23 06:40] LABS: BASOPHILS % 0.2 (0.0-1.5); EOSINOPHILS % 0.9 % (0.0-6.8); MEAN CORPUSCULAR HEMOGLOBIN 24.5 pg (28.0-34.0); MONOCYTES % 0.8 % (0.0-11.0); NEUTROPHILS # 11.6 # k/uL (1.4-7.7)
[2018-04-23 06:52] LABS: eGFR (Non-African) > 60
[2018-04-23] MEDS ORDERED: FAMOTIDINE/PF 20 MG/2 ML VIAL ONE (07:09)
[2018-04-23] MEDS: PANTOPRAZOLE SODIUM 40 MG TABLET.DR PO SCH (07:10)
[2018-04-23] MEDS ORDERED: FLUTICASONE PROPIONATE IH SCH (09:00)
[2018-04-23] MEDS ORDERED: [UNRECOGNIZED DRUG - OTHER] IH SCH (09:00)
[2018-04-23] MEDS ORDERED: methylPREDNISolone SOD SUCC 125 MG/2 ML VIAL IVP SCH (09:00)
[2018-04-23] MEDS: DILTIAZEM HCL 120 MG CAP.ER.24H PO SCH (10:07)
[2018-04-23] MEDS: POTASSIUM CHLORIDE 20 MEQ TABLET.ER PO SCH (10:07)
[2018-04-23] MEDS: GABAPENTIN 300 MG CAPSULE PO SCH ×3 (10:07→17:32)
[2018-04-23] MEDS: HYDROCHLOROTHIAZIDE 25 MG TABLET PO SCH (10:07)
[2018-04-23] MEDS: POTASSIUM CHLORIDE 10 MEQ TABLET.ER PO SCH (10:07)
[2018-04-23] MEDS: SERTRALINE HCL 50 MG TABLET PO SCH (10:08)
[2018-04-23] MEDS: IPRATROPIUM/ALBUTEROL SULFATE 3 ML AMPUL.NEB NEB PRN ×3 (10:26→19:58)
--- NOTE | 2018-04-23 12:47 | History and Physical Report ---
History of Present Illnes - History of Present Illness Reason for Visit: dyspneqa History of Present Illness: Patient is a 67-year-old white female with a known history of asthma and COPD. Patient data approximately four weeks ago she developed a cough that was productive up some green to yellow phlegm. Patient was seen by a primary care physician who darted her on some Levaquin and steroids. Initially patient did see some improvement. Patient finished the course of antibiotic therapy over a week ago. Patient stated over the last 24 to 48 hours prior to admission start having some increasing dyspnea shortness of breath. Patient does have oxygen at home that she uses on appear in basis. Patient has to start using the oxygen on a regular basis and at a higher concentration with she is used to. Patient was subsequently seen in the ED and noted to be mildly hypoxic. Patient was having some wheezing. It was felt that the patient was having some bronchitis with an exacerbation of her COPD and was subsequently admitted to the hospital for further care and evaluation. - Past Medical History Cardiac: HTN, Hyperlipidemia Pulmonary: Asthma, COPD - Past Surgical History Past Surgical History: Other (uternine ablation), Total Knee Replacement, Other (lacerated artery repair) - Past Family History Mother Family History: DM, Hyperlipidemia, Hypertension Father Family History: (COPD) - Past Social History Smoke: Quit (Quit smoking about 25 years ago, 25 pk year history) Alcohol: None Lives: With Family - Health Maintenance Health Maintenance: Cholesterol, Influenza Vaccine, Pneumococcal Vaccine Influenza Vaccine: Current for this Influenza Season Pneumonia Vaccine: Yes Resuscitation Status: Resusciation Status Resuscitation Status Full Code Review of Systems - Review of Systems Constitutional: Fever, Chills. negative: Sweats Eyes: negative: pain ENT: negative: Ear Pain, Ear Discharge, Nose Pain, Nose Discharge, Nose Congestion, Mouth Pain, Mouth Swelling, Throat Pain Respiratory: Cough, Shortness of Breath, SOB with Excertion, Sputum (green), Wheezing. negative: Hemoptysis, Pleuritic Pain Cardiovascular: negative: Chest Pain, Palpitations, Orthopnea, Paroxysmal Noc. Dyspnea Gastrointestinal: negative: Nausea, Vomiting, Abdominal Pain, Diarrhea, Constipation Genitourinary: negative: Dysuria, Frequency, Incontinence Musculoskeletal: negative: Neck Pain Skin: negative: Rash, Lesions Neurological: negative: Weakness, Numbness, Incoordination, Change in Speech, Seizures - Medications/Allergies Allergies/Adverse Reactions: Allergies Allergy/AdvReac Type Severity Reaction Status Date / Time amoxicillin Allergy Mild Rash Verified 04/22/18 21:55 codeine Allergy Mild Rash Verified 04/22/18 21:55 doxycycline Allergy Mild Rash Verified 04/22/18 21:55 lisinopril Allergy Mild Rash Verified 04/22/18 21:55 losartan Allergy Mild Rash Verified 04/22/18 21:55 adhesive tape AdvReac Mild Rash Verified 04/22/18 21:55 Home Medications: Home Medications Albuterol Sulfate [Proair HFA] 8.5 gm INH Q4 04/22/18 Hydrochlorothiazide 25 mg PO DAILY 04/22/18 Lovastatin [Mevacor] 10 mg PO DAILY 04/22/18 Roflumilast [Daliresp] 500 mcg PO DAILY 04/22/18 Current Inpatient Medications: Current Inpatient Medications Albuterol/Ipratropium (Duoneb) 3 ml NEB Q4 PRN PRN Reason: Wheezing Last Admin: 04/23/18 10:26 Dose: 3 ml Diltiazem HCl (Cardizem Cd) 120 mg PO DAILY [facility] Last Admin: 04/23/18 10:07 Dose: 120 mg Fluticasone Propionate (Flovent Hfa) inh IH BID [facility] Gabapentin (Neurontin) 300 mg PO TID [facility] Last Admin: 04/23/18 10:07 Dose: 300 mg Hydrochlorothiazide (Hydrodiuril) 25 mg PO DAILY [facility] Last Admin: 04/23/18 10:07 Dose: 25 mg Sodium Chloride (Normal Saline) 1,000 mls @ 125 mls/hr IV Q8H [facility] Last Admin: 04/23/18 07:16 Dose: Not Given Sodium Chloride (Normal Saline) 1,000 mls @ 100 mls/hr IV Q10H [facility] Last Admin: 04/23/18 07:17 Dose: 100 mls/hr Azithromycin 500 mg/ Sodium (Chloride) 250 mls @ 125 mls/hr IV Q24H [facility] Stop: 05/02/18 22:59 Last Admin: 04/22/18 23:57 Dose: 125 mls/hr Methylprednisolone Sodium Succinate (Solu-Medrol) 125 mg IVP Q12 [facility] Last Admin: 04/23/18 10:07 Dose: 125 mg Montelukast Sodium (Singulair) 10 mg PO HS [facility] Pantoprazole Sodium (Protonix) 40 mg PO 0700 [facility] Last Admin: 04/23/18 07:10 Dose: 40 mg Potassium Chloride (Klor-Con 10) 10 meq PO DAILY [facility] Last Admin: 04/23/18 10:07 Dose: 10 meq Potassium Chloride (Klor-Con M20) 20 meq PO DAILY [facility] Last Admin: 04/23/18 10:07 Dose: 20 meq Sertraline HCl (Zoloft) 100 mg PO DAILY [facility] Last Admin: 04/23/18 10:08 Dose: 100 mg Simvastatin (Zocor) 20 mg PO [facility] Exam - Exam Vital Signs: Vital Signs (72 hours) 04/22/18 04/22/18 04/22/18 20:50 21:45 22:43 Temperature 97.5 F L 97.5 F L 98.0 F Pulse Rate [ 73 73 106 H Left Pulse ox] Respiratory 20 20 20 Rate Blood Pressure 109/55 [Left Arm] Blood Pressure 118/66 118/66 159/72 [Right Arm] O2 Sat by Pulse 94 98 94 Oximetry 04/22/18 04/23/18 04/23/18 22:52 02:00 02:52 Temperature 97.5 F L Pulse Rate [ 86 Left Pulse ox] Respiratory 20 Rate Blood Pressure [Left Arm] Blood Pressure 129/66 [Right Arm] O2 Sat by Pulse 94 94 94 Oximetry 04/23/18 06:00 Temperature 96.9 F L Pulse Rate [ 81 Left Pulse ox] Respiratory 20 Rate Blood Pressure [Left Arm] Blood Pressure 151/75 [Right Arm] O2 Sat by Pulse 97 Oximetry General: Alert, Oriented to Person, Oriented to Place, Oriented to Time, Cooperative, Mild distress HEENT: Atraumatic, PERRLA, Dentition Normal, Hearing Grossly Normal Neck: Normal Range of Motion. No: Stridor, Rigidity, Lymphadenopathy Lungs: Normal air movement, Speaks full Sentences, Respiratory Distress (mild), Wheezes (right), Rhonchi (few scattered). No: Rales Cardiovascular: Regular rate, Normal S1, Normal S2, No murmurs, Gallops Murmur: Systolic Murmur Abdomen: Normal bowel sounds, Soft, No tenderness, No hepatospenomegaly, No masses Integumentary: Normal, [place], Warm, Dry Extremities: No clubbing, No cyanosis, No edema Neurological: Normal gait, Normal speech, Strength Equal Bilat, Normal tone, Cranial nerves 3-12 NL, Reflexes 2+ Psych/Mental Status: Mental status NL, Mood NL, Appropriate Affect, Intact Judgment - Laboratory Results Laboratory Results: Laboratory Results 04/22/18 04/22/18 04/22/18 21:24 21:24 21:24 WBC 15.10 H RBC 4.36 Hgb 10.6 L Hct 32.6 L MCV 75.0 L MCH 24.3 L MCHC 32.5 RDW 15.9 H Plt Count 211 Neut % (Auto) 89.9 H Lymph % (Auto) 5.7 L [place] % (Auto) 2.9 Eos % (Auto) 1.2 Baso % (Auto) 0.3 Neut # (Auto) 13.6 H Lymph # (Auto) 0.9 [place] # (Auto) 0.4 Eos # (Auto) 0.2 Baso # (Auto) 0.1 Sodium 138 Potassium 3.1 L Chloride 98 Carbon Dioxide 27 BUN 8 Creatinine 0.70 Estimated Creat Clear Est GFR ( Amer) > 60 Est GFR (Non-Af Amer) > 60 Glucose 158 H Calcium 8.6 Total Bilirubin 0.4 AST 34 ALT 24 Alkaline Phosphatase 86 NT-Pro-B Natriuret Pep 81.8 Total Protein 7.1 Albumin 3.9 04/23/18 04/23/18 06:00 06:00 WBC 12.30 H RBC 4.15 Hgb 10.2 L Hct 31.0 L MCV 75.0 L MCH 24.5 L MCHC 32.7 RDW 16.4 H Plt Count 196 Neut % (Auto) 94.8 H Lymph % (Auto) 3.3 L [place] % (Auto) 0.8 Eos % (Auto) 0.9 Baso % (Auto) 0.2 Neut # (Auto) 11.6 H Lymph # (Auto) 0.4 L [place] # (Auto) 0.1 Eos # (Auto) 0.1 Baso # (Auto) 0.0 Sodium 140 Potassium 3.4 L Chloride 102 Carbon Dioxide 28 BUN 7 Creatinine 0.60 Estimated Creat Clear 130 Est GFR ( Amer) > 60 Est GFR (Non-Af Amer) > 60 Glucose 172 H Calcium 8.2 L Total Bilirubin 0.4 AST 15 ALT 30 Alkaline Phosphatase 83 NT-Pro-B Natriuret Pep Total Protein 6.0 L Albumin 3.4 L Assessment/Plan - Assessment/Plan (1) COPD with exacerbation Status: Acute Current Visit: Yes Assessment: Patient has been started on IV steroids, will continue with home meds. (2) Bronchitis Status: Acute Current Visit: Yes Assessment: Patient will be started on azithromycin. Patient will be started on high flow nebulization treatments (3) Tobacco abuse Status: Acute Current Visit: Yes Assessment: Patient believes that she will not need any nicotine patches at this time. (4) Hyperglycemia Status: Acute Current Visit: Yes Assessment: Probably related to steroid use. (5) Essential hypertension Status: Acute Current Visit: Yes Assessment: Continue with present home medications. VTE Assessment - RISK FACTOR SCORE VTE RISK FACTOR SCORES: AGE OVER 60 YEARS, ACUTE RESPIRATORY FAILURE/SEVERE COPD - RISK VTE MODERATE RISK: SCORE OF 2 (RISK PROXIMAL DVT 2-4%) PROPHYAXIS NEEDED
[2018-04-23] MEDS ORDERED: methylPREDNISolone SOD SUCC 40 MG/ML VIAL IVP SCH (21:00)
[2018-04-23] MEDS: SODIUM CHLORIDE 0.9% IV SCH (22:33)
[2018-04-23] MEDS: AZITHROMYCIN IV SCH (22:33)
[2018-04-23] MEDS: ENOXAPARIN SODIUM 30 MG/0.3 ML DISP.SYRIN SQ SCH (22:33)
[2018-04-23] MEDS: MONTELUKAST SODIUM 10 MG TABLET PO SCH (22:34)
[2018-04-23] MEDS: FLUTICASONE PROPIONATE 120 SPRAY/16 GR BOTTLE NS SCH (22:34)
[2018-04-23] MEDS: methylPREDNISolone SOD SUCC 125 MG/2 ML VIAL IVP SCH (22:36)
[2018-04-23] MEDS: SIMVASTATIN 20 MG TABLET PO SCH (22:39)
[2018-04-24] MEDS: IPRATROPIUM/ALBUTEROL SULFATE 3 ML AMPUL.NEB NEB PRN ×4 (01:05→21:45)
[2018-04-24] MEDS: 0.9 % SODIUM CHLORIDE 1,000 ML IV SCH (03:14)
[2018-04-24] MEDS: PANTOPRAZOLE SODIUM 40 MG TABLET.DR PO SCH (05:50)
[2018-04-24 07:10] LABS: BASOPHILS % 0.3 (0.0-1.5); EOSINOPHILS % 1.3 % (0.0-6.8); MEAN CORPUSCULAR HEMOGLOBIN 24.4 pg (28.0-34.0); NEUTROPHILS # 20.7 # k/uL (1.4-7.7)
[2018-04-24] MEDS: POTASSIUM CHLORIDE 20 MEQ TABLET.ER PO SCH (08:43)
[2018-04-24] MEDS: FLUTICASONE PROPIONATE 120 SPRAY/16 GR BOTTLE NS SCH ×2 (08:43→20:39)
[2018-04-24] MEDS: SERTRALINE HCL 50 MG TABLET PO SCH (08:43)
[2018-04-24] MEDS: GABAPENTIN 300 MG CAPSULE PO SCH ×3 (08:43→17:44)
[2018-04-24] MEDS: HYDROCHLOROTHIAZIDE 25 MG TABLET PO SCH (08:43)
[2018-04-24] MEDS: DILTIAZEM HCL 120 MG CAP.ER.24H PO SCH (08:43)
[2018-04-24] MEDS: POTASSIUM CHLORIDE 10 MEQ TABLET.ER PO SCH (08:45)
[2018-04-24] MEDS ORDERED: FLUTICASONE PROPIONATE 120 SPRAY/16 GR BOTTLE NS SCH (09:00)
[2018-04-24] MEDS: methylPREDNISolone SOD SUCC 125 MG/2 ML VIAL IVP SCH ×2 (09:01→20:37)
--- NOTE | 2018-04-24 12:04 | Inpatient Progress Note ---
Subjective - Required Recertification Statement I anticipate X number of days because-include discharge plan: 1 day - Review of Systems Subjective: Patient states he still is having some difficulties with breathing especially with ambulation. Patient denied any chest pain. Patient is a mild productive cough of some green to yellow phlegm. Pulmonary: Denies: Dyspnea, Cough Cardiovascular: Denies: Chest Pain, Palpitations, Orthopnea Objective - Exam Vitals and I&O: Vital Signs Temp 98.1 F 04/24/18 10:30 Pulse 87 04/24/18 10:30 Resp 18 04/24/18 10:30 BP 142/78 04/24/18 10:30 Pulse Ox 93 04/24/18 10:30 Intake & Output 04/23/18 04/24/18 04/24/18 23:59 11:59 23:59 Intake Total 3930 1070 Balance 3930 1070 Weight 172 kg Intake: IV 600 350 Left Hand 600 350 Oral 3330 720 Other: Voiding Method Toilet Toilet # Voids 1 1 General: Alert, Oriented to Person, Oriented to Place, Oriented to Time, Cooperative HEENT: Atraumatic, PERRLA, EOMI, Mouth Mucous membr. moist/[place], Nose Mucous m embr. moist/[place] Neck: Supple, No JVD, No thyromegaly Lungs: Normal air movement, Speaks full Sentences, Wheezes, Rhonchi Cardiovascular: Regular rate, Normal S1, Normal S2, No murmurs Abdomen: Normal bowel sounds, Soft, No tenderness, No hepatospenomegaly, No masses Extremities: No clubbing, No cyanosis, No edema, Normal pulses, No tenderness/swelling Skin: Normal, [place], Warm, Dry Neurological: Normal gait, Normal speech, Strength Equal Bilat, Normal tone, Sensation intact, Cranial nerves 3-12 NL, Reflexes 2+ Psych/Mental Status: Mental status NL, Mood NL, Appropriate Affect, Intact Judgment - Results Results: Laboratory Results WBC 22.20 K/ul (4.00-12.00) H 04/23/18 07:00 RBC 4.12 M/ul (3.90-5.20) 04/23/18 07:00 Hgb 10.0 g/dL (12.0-16.0) L 04/23/18 07:00 Hct 0.0 % (34.5-46.5) L 04/23/18 07:00 MCV 75.0 fl (80.0-100.0) L 04/23/18 07:00 MCH 24.4 pg (28.0-34.0) L 04/23/18 07:00 MCHC 32.3 g/dL (30.0-36.0) 04/23/18 07:00 RDW 15.9 % (11.3-14.3) H 04/23/18 07:00 Plt Count 230 K/mm3 (130-400) 04/23/18 07:00 Neut % (Auto) 93.3 % (39.0-79.0) H 04/23/18 07:00 Lymph % (Auto) 2.1 % (16.0-50.0) L 04/23/18 07:00 [place] % (Auto) 3.0 % (0.0-11.0) 04/23/18 07:00 Eos % (Auto) 1.3 % (0.0-6.8) 04/23/18 07:00 Baso % (Auto) 0.3 (0.0-1.5) 04/23/18 07:00 Neut # (Auto) 20.7 # k/uL (1.4-7.7) H 04/23/18 07:00 Lymph # (Auto) 0.0 # k/uL (0.6-4.0) L 04/23/18 07:00 [place] # (Auto) 0.7 # k/uL (0.0-0.9) 04/23/18 07:00 Eos # (Auto) 0.3 # k/uL (0.0-0.6) 04/23/18 07:00 Baso # (Auto) 0.1 # k/uL (0.0-0.5) 04/23/18 07:00 Sodium 140 mmol/L (136-145) 04/23/18 06:00 Potassium 3.4 mmol/L (3.5-5.1) L 04/23/18 06:00 Chloride 102 mmol/L (98-107) 04/23/18 06:00 Carbon Dioxide 28 mmol/L (22-30) 04/23/18 06:00 BUN 7 mg/dL (7-17) 04/23/18 06:00 Creatinine 0.60 mg/dL (0.52-1.04) 04/23/18 06:00 Estimated Creat Clear 130 04/23/18 06:00 Est GFR ( Amer) > 60 (60-) 04/23/18 06:00 Est GFR (Non-Af Amer) > 60 (60-) 04/23/18 06:00 Glucose 172 mg/dL (74-106) H 04/23/18 06:00 Calcium 8.2 mg/dL (8.4-10.2) L 04/23/18 06:00 Total Bilirubin 0.4 mg/dL (0.2-1.3) 04/23/18 06:00 AST 15 U/L (15-46) 04/23/18 06:00 ALT 30 U/L (13-69) 04/23/18 06:00 Alkaline Phosphatase 83 U/L (38-126) 04/23/18 06:00 NT-Pro-B Natriuret Pep 81.8 pg/mL (15.0-125.0) 04/22/18 21:24 Total Protein 6.0 g/dL (6.3-8.2) L 04/23/18 06:00 Albumin 3.4 g/dL (3.5-5.0) L 04/23/18 06:00 Assessment/Plan - Assessment/Plan (1) COPD with exacerbation Status: Acute Assessment: Will continue at present medications and treatment. Patient is having some hyperglycemia probably related to the steroid therapy. Patient does have a leukocytosis again probably related to the steroid therapy. (2) Bronchitis Status: Acute Assessment: Will continue with azithromycin. (3) Tobacco abuse Status: Acute Assessment: Will encourage the patient to remain off of tobacco. (4) Hyperglycemia Status: Acute (5) Essential hypertension Status: Acute
[2018-04-24] MEDS: TIOTROPIUM BROMIDE INHALER IH SCH (13:47)
[2018-04-24] MEDS: ENOXAPARIN SODIUM 30 MG/0.3 ML DISP.SYRIN SQ SCH (20:38)
[2018-04-24] MEDS: SODIUM CHLORIDE 0.9% IV SCH (20:39)
[2018-04-24] MEDS: AZITHROMYCIN IV SCH (20:39)
[2018-04-24] MEDS: SALINE FLUSH 10 ML DISP.SYRIN IV SCH (20:42)
[2018-04-24] MEDS: MONTELUKAST SODIUM 10 MG TABLET PO SCH (20:42)
[2018-04-24] MEDS: SIMVASTATIN 20 MG TABLET PO SCH (20:42)
[2018-04-25] MEDS: PANTOPRAZOLE SODIUM 40 MG TABLET.DR PO SCH (05:51)
[2018-04-25] MEDS: IPRATROPIUM/ALBUTEROL SULFATE 3 ML AMPUL.NEB NEB PRN (06:02)
[2018-04-25 07:28] LABS: eGFR (Non-African) > 60
[2018-04-25 07:34] LABS: MEAN CORPUSCULAR HEMOGLOBIN 24.3 pg (28.0-34.0)
[2018-04-25 07:51] LABS: ANISOCYTOSIS 1+ (NEGATIVE); BASOPHILS % 1 % (0-2); EOSINOPHILS % 0 % (0-7); MONOCYTES % 1 % (0-11); SEGMENTED NEUTROPHILS % 86 % (39-79)
[2018-04-25] MEDS: DILTIAZEM HCL 120 MG CAP.ER.24H PO SCH (08:30)
[2018-04-25] MEDS: POTASSIUM CHLORIDE 10 MEQ TABLET.ER PO SCH (08:30)
[2018-04-25] MEDS: GABAPENTIN 300 MG CAPSULE PO SCH (08:30)
[2018-04-25] MEDS: POTASSIUM CHLORIDE 20 MEQ TABLET.ER PO SCH (08:30)
[2018-04-25] MEDS: HYDROCHLOROTHIAZIDE 25 MG TABLET PO SCH (08:30)
[2018-04-25] MEDS: FLUTICASONE PROPIONATE 120 SPRAY/16 GR BOTTLE NS SCH (08:31)
[2018-04-25] MEDS: SERTRALINE HCL 50 MG TABLET PO SCH (08:31)
[2018-04-25] MEDS: TIOTROPIUM BROMIDE INHALER IH SCH (08:31)
[2018-04-25] MEDS: methylPREDNISolone SOD SUCC 125 MG/2 ML VIAL IVP SCH (08:31)
[2018-04-25] MEDS: SALINE FLUSH 10 ML DISP.SYRIN IV SCH (08:32)
--- NOTE | 2018-04-25 08:32 | Discharge Summary ---
Discharge Summary - Discharge Sumary History of Present Illness: Patient is a 67-year-old white female with a known history of asthma and COPD. Patient data approximately four weeks ago she developed a cough that was productive up some green to yellow phlegm. Patient was seen by a primary care physician who darted her on some Levaquin and steroids. Initially patient did see some improvement. Patient finished the course of antibiotic therapy over a week ago. Patient stated over the last 24 to 48 hours prior to admission start having some increasing dyspnea shortness of breath. Patient does have oxygen at home that she uses on appear in basis. Patient has to start using the oxygen on a regular basis and at a higher concentration with she is used to. Patient was subsequently seen in the ED and noted to be mildly hypoxic. Patient was having some wheezing. It was felt that the patient was having some bronchitis with an exacerbation of her COPD and was subsequently admitted to the hospital for further care and evaluation. Condition at Discharge: Stable Home Medications: Ambulatory Orders Medication Instructions Recorded Albuterol Sulfate [Proair HFA] 2 puff INH Q4 PRN 05/01/16 Fluticasone Propionate 220 Mcg 50 mcg COURTNEY BID 05/01/16 [Flovent Hfa] Montelukast Sodium [Singulair] 10 mg PO HS 05/01/16 Omeprazole [Prilosec] 20 mg PO DAILY 05/01/16 Sertraline HCl [Zoloft] 100 mg PO DAILY 05/01/16 Hydrochlorothiazide 25 mg PO DAILY 04/22/18 Lovastatin [Mevacor] 10 mg PO DAILY 04/22/18 Roflumilast [Daliresp] 500 mcg PO DAILY 04/22/18 Azithromycin [Zithromax] 250 mg PO DAILY #3 tablet 04/25/18 Metformin HCl [Glucophage] 500 mg PO [id number] #30 tablet 04/25/18 predniSONE [Sarah] 5 mg PO DIRECTED #72 tablet. 04/25/18 Consultations this Visit: None Procedures this Visit: None Allergies/Adverse Reactions: Allergies Allergy/AdvReac Type Severity Reaction Status Date / Time amoxicillin Allergy Mild Rash Verified 04/22/18 21:55 codeine Allergy Mild Rash Verified 04/22/18 21:55 doxycycline Allergy Mild Rash Verified 04/22/18 21:55 lisinopril Allergy Mild Rash Verified 04/22/18 21:55 losartan Allergy Mild Rash Verified 04/22/18 21:55 adhesive tape AdvReac Mild Rash Verified 04/22/18 21:55 Discharge Summary: Patient was started on IV stearate to methylprednisolone and tapered down to oral dose at the time to discharge. Patient was started on azithromycin for her bronchitis. Patient was started on high flow nebulization treatments. Over the first 24 hours patient did have some mild improvement. After 48 hours patient was breathing much better. Patient is able to maintain her SaO2 in the mid 90s On 2 L nasal cannula. Patient did have some hyperglycemia felt to be related to the steroid therapy. Patient was noted to have a micro Citic anemia with the hemoglobin in the 10s. It did remain stable. At the time to discharge patient was stable. It was felt that she could be discharged safely home and managed as an outpatient. - Final Diagnosis (1) COPD with exacerbation Problems: improved (2) Bronchitis Problems: improved (4) Hyperglycemia Problems: A1c 7.0, patient started on metformin (5) Essential hypertension Problems: stable on home medication
[2018-04-25 11:03] VITALS: BP 143/68
== END 2018-04-25 11:00 | disposition home or self-care (01) | DRG 192 ==
LOC: ED 20:46 → SOUTH 22:38
PROVIDERS: ADMIT Family Medicine; ATTEND Family Medicine
DX: J44.1 Chronic obstructive pulmonary disease with (acute) exacerbation (principal); J40 Bronchitis, not specified as acute or chronic; I10 Essential (primary) hypertension; E78.5 Hyperlipidemia, unspecified; R73.9 Hyperglycemia, unspecified
CPT/HCPCS: 36415; 71046; 80053; 83036; 83880; 85025; 93005; A9270; J0456; J1650; J2930; J7030; J7050; J7060; 96365; 96375; 99222; 99231; 99238; 99284; S0028; S1016

== ENCOUNTER 2018-08-08 12:09 | Day surgery (SDC) | payer MEDICARE, OTHER ==
[~2018-08-08 12:09] MED LIST: LACTATED RINGERS 1,000 ML IV.SOLN IV ONE; LIDOCAINE HCL 2% PF 100MG/5ML VIAL IJ ONE; PROPOFOL 200 MG/20 ML VIAL IV ONE
[2018-08-08] MEDS ORDERED: LEVALBUTEROL NEB 1.25 MG/3 ML VIAL.NEB IH ONE (13:01)
--- NOTE | 2018-08-23 14:02 | GI Report ---
PROCEDURE PERFORMED: Colonoscopy with polypectomy. SURGEON: Danielle Jama M.D., F.A.C.P. INDICATION FOR PROCEDURE: The patient is a 67-year-old woman with severe COPD. She is oxygen-dependent. She was a cigarette smoker for over 30 years, over a pack a day before stopping 20 years ago. She did have a treatment before colonoscopy. She denies much change in stools though occasionally she has had some mucus and a little blood in her stool. Her last colonoscopy was apparently over 10 years ago. The patient is high risk. We discussed we would only be able to give her light sedation because of her severe lung disease. PROCEDURE MEDICATION: Propofol, as per Anesthesia. She did very well with light sedation and her pulse oximetry remained 100%. DESCRIPTION OF PROCEDURE: The colonoscope was slowly advanced all the way to the cecum. The prep was just fair. The appendiceal orifice and the ileocecal valve were normal. On slow withdrawal in the ascending colon and transverse colon, no obvious intraluminal lesions were noted. In the descending colon and sigmoid, extensive diverticular disease and in the sigmoid at about 15 cm the patient has about a 1.5 cm sized polyp on a stalk which was removed with electrocautery and submitted to pathology. We went back to the site and there was no bleeding, the cautery seemed to be adequate. The patient actually did fairly amazingly well for her pulse oximetry throughout the procedure. FINDINGS: 1. Huge polyp removed from the sigmoid colon. 2. Severe diverticular disease of the sigmoid colon. RECOMMENDATIONS: 1. Liquid diet until tomorrow because of the size of the stalk, then resume her regular diet at that point. 2. Pending the pathology of the polyp one may need to look at this again in 3-5 years, depending on what her lung disease is at that point. DANIELLE JAMA M.D., F.A.C.P. David R: 08/22/18 Job#: [id number] Cc: Edy Salmon M.D. ] MTDQuoc
== END 2018-08-08 14:30 | disposition home or self-care (01) ==
LOC: OPSURG 12:09
PROVIDERS: ATTEND Internal Medicine Gastroenterology
DX: Z12.11 Encounter for screening for malignant neoplasm of colon (principal); D12.5 Benign neoplasm of sigmoid colon; K57.30 Diverticulosis of large intestine without perforation or abscess without bleeding; K92.1 Melena; Z72.0 Tobacco use
CPT/HCPCS: 45384; J2001; J2704; J7120; J7614; S1016

== ENCOUNTER 2018-11-17 21:38 | Emergency (ER) | payer MEDICARE, OTHER ==
[2018-11-17] MEDS ORDERED: traMADol HCL 50 MG TABLET ONE (22:01)
== END 2018-11-17 23:35 ==
LOC: ED 21:38
DX: S42.91XA Fracture of right shoulder girdle, part unspecified, initial encounter for closed fracture (principal); X58.XXXA Exposure to other specified factors, initial encounter; Y99.8 Other external cause status
CPT/HCPCS: 71020; 96372; 99283; 99284

== ENCOUNTER 2018-12-09 10:23 | Emergency (ER) | payer MEDICARE, OTHER ==
--- NOTE | 2018-12-09 10:32 | ED Physician Documentation ---
Sore Throat/Dental Pain - HISTORIAN Historian: patient - HPI Stated Complaint: mouth sores post admission Chief Complaint: General Adult Onset: days ago (2) Context: Other (sores via steroid after inpt admission ) Associated Symptoms: denies: fever, chills, sore throat Further Comments: yes (she has sores in her mouth post steriods - she has been using nystatin and this is not helping "much" she is using a new inhaler. She is on oral steriods) - ROS CONST: recent illness NEURO/PSYCH: none - PAST HX Past History: none (post steriod ) Allergies/Adverse Reactions: Allergies Allergy/AdvReac Type Severity Reaction Status Date / Time amoxicillin Allergy Mild Rash Verified 12/09/18 10:45 codeine Allergy Mild Rash Verified 12/09/18 10:45 doxycycline Allergy Mild Rash Verified 12/09/18 10:45 lisinopril Allergy Mild Rash Verified 12/09/18 10:45 losartan Allergy Mild Rash Verified 12/09/18 10:45 adhesive tape AdvReac Mild Rash Verified 12/09/18 10:45 Home Medications: Ambulatory Orders Medication Instructions Recorded Fluticasone Propionate 220 Mcg 50 mcg COURTNEY BID 05/01/16 [Flovent Hfa] Montelukast Sodium [Singulair] 10 mg PO HS 05/01/16 Omeprazole [Prilosec] 20 mg PO DAILY 05/01/16 Hydrochlorothiazide 25 mg PO DAILY 04/22/18 Roflumilast [Daliresp] 500 mcg PO DAILY 04/22/18 Azithromycin [Zithromax] 250 mg PO DAILY #3 tablet 04/25/18 Albuterol Sulfate [Ventolin] 2.5 mg NEB TID PRN 12/01/18 Cetirizine HCl [Zyrtec] 10 mg PO DAILY 12/01/18 Fluticasone/Vilanterol [Breo 1 puff INH DAILY 12/01/18 Ellipta 100-25 Mcg INH] Guaifenesin [Mucinex] 1,200 mg PO DAILY 12/01/18 Umeclidinium [place] [Incruse 62.5 mcg IH DAILY 12/01/18 Ellipta] - SOCIAL HX Smoking History: non-smoker Alcohol Use: none Drug Use: none - FAMILY HX Family History: No - VITAL SIGNS Vital Signs: Vital Signs Temp Pulse Resp BP Pulse Ox 138/78 12/07/18 10:00 - REVIEWED ASSESSMENTS Nursing Assessment Reviewed: Yes Vitals Reviewed: Yes Dental Pain Physical Exam - EXAM General Appearance: no acute distress, alert Head/Neck: head nml inspection, no lymphadenopathy Eyes: eyes nml inspection Mouth/Throat: lips nml, gums nml, no drooling, no air way problems, other (small patches of thrush on lateral tongue and several blister areas on lateral side of mouth and tongue) Ear/Nose: nml inspection Respiratory: no resp. distress, breath sounds nml CVS: reg. rate & rhythm, heart sounds nml Abdomen: soft, no distension Extremities: non-tender Skin: warm/dry Neuro/Psych: none Discharge Clincal Impression: Herpes virus infection of oral mucosa Referrals: Edy Salmon MD [Primary Care Provider] - 2 Days Comments: 1. Change nystatin mouth wash to magic mouth was 2. Acyclovir 400 mg take 1 by mouth three times per day x 7 days 3. Hold prednisone 4. Rinse after inhalers 5. Follow up with PCP Wednesday 6. Return to ER for any increasing concerns Condition: Stable Disposition: 01 HOME, SELF-CARE Decision to Admit: NO Date of Decison to Admit: 12/09/18 Decision Time: 11:07
[2018-12-09 10:46] VITALS: BP 169/77
== END 2018-12-09 11:19 | disposition home or self-care (01) ==
LOC: ED 10:23
DX: B00.9 Herpesviral infection, unspecified (principal)
CPT/HCPCS: 99282; 99283

== ENCOUNTER 2018-12-23 14:24 | Emergency (ER) | payer MEDICARE, OTHER ==
--- NOTE | 2018-12-23 14:31 | ED Physician Documentation ---
General Adult - HISTORIAN Historian: patient - HPI Stated Complaint: sob Chief Complaint: General Adult Onset: hours Timing: still present Severity: moderate Further Comments: yes (Pt is a 68 yo female with weakness and increasing sob over the past 3 days. Pt has hx COPD. Pt denies cp, n/v. Pt is comfortable at rest, but sob with exertion. Pt has home O2 that she uses at night and prn.) - ROS CONST: weakness EYES/ENT: none CVS/RESP: shortness of breath GI/: none MS/SKIN/LYMPH: none - PAST HX Past History: COPD, other (Depression, HLD, HTN, ortho surgery) Allergies/Adverse Reactions: Allergies Allergy/AdvReac Type Severity Reaction Status Date / Time amoxicillin Allergy Mild Rash Verified 12/23/18 14:53 codeine Allergy Mild Rash Verified 12/23/18 14:53 doxycycline Allergy Mild Rash Verified 12/23/18 14:53 lisinopril Allergy Mild Rash Verified 12/23/18 14:53 losartan Allergy Mild Rash Verified 12/23/18 14:53 adhesive tape AdvReac Mild Rash Verified 12/23/18 14:53 Home Medications: Ambulatory Orders Medication Instructions Recorded Fluticasone Propionate 220 Mcg 50 mcg COURTNEY BID 05/01/16 [Flovent Hfa] Montelukast Sodium [Singulair] 10 mg PO HS 05/01/16 Omeprazole [Prilosec] 20 mg PO DAILY 05/01/16 Hydrochlorothiazide 25 mg PO DAILY 04/22/18 Roflumilast [Daliresp] 500 mcg PO DAILY 04/22/18 Albuterol Sulfate [Ventolin] 2.5 mg NEB TID PRN 12/01/18 Cetirizine HCl [Zyrtec] 10 mg PO DAILY 12/01/18 Fluticasone/Vilanterol [Breo 1 puff INH DAILY 12/01/18 Ellipta 100-25 Mcg INH] Guaifenesin [Mucinex] 1,200 mg PO DAILY 12/01/18 Umeclidinium [place] [Incruse 62.5 mcg IH DAILY 12/01/18 Ellipta] - SOCIAL HX Smoking History: quit greater than 1 year - FAMILY HX Family History: No - VITAL SIGNS Vital Signs: Vital Signs Temp Pulse Resp BP Pulse Ox 169/77 12/09/18 10:41 - REVIEWED ASSESSMENTS Nursing Assessment Reviewed: Yes Vitals Reviewed: Yes Progress - Progress Progress: Duoneb HFN Solu-medrol [address] chest: Moderate to severe emphysema. Old granulomatous disease. No evidence for pulmonary embolism. Rx Flovent (110 mcg/spray). Take 2 puffs twice daily for 3 days; then 1 puff twice daily for 3 days; then 1 puff daily for 3 days. Continue your Nebulizer medications and other home medications as directed. Rx Z-yoselyn. Use as directed on package. - EKG/XRAY/CT EKG: rhythm (sinus tachycardia, [id number].) General Adult Physical Exam - PHYSICAL EXAM GENERAL APPEARANCE: moderate distress EENT: pharynx normal NECK: normal inspection, supple RESPIRATORY: rales (R lower lung field) CVS: tachycardia ABDOMEN: soft, no organomegaly, normal bowel sounds BACK: normal inspection, no CVA tenderness SKIN: warm/dry, normal color EXTREMITIES: non-tender, normal range of motion, no evidence of injury NEURO: oriented X3, motor nml, sensation nml Discharge Clincal Impression: COPD with exacerbation Referrals: Edy Salmon MD [Primary Care Provider] - 2 Days Condition: Stable Disposition: HOME, SELF-CARE Decision to Admit: NO Decision Time: 17:25
[2018-12-23] MEDS ORDERED: 0.9 % SODIUM CHLORIDE 1,000 ML IV ONE (14:50)
[2018-12-23 14:53] VITALS: BP 129/62
[2018-12-23 15:01] LABS: BASOPHILS % 0.3 % (0.0-1.5); NEUTROPHILS # 12.6 # k/uL (1.4-7.7)
[2018-12-23 15:26] LABS: eGFR (Non-African) > 60
--- NOTE | 2018-12-23 15:31 | Diagnostic Imaging Report ---
FIDEL SIEGEL [facility] [address] [facility] [address] [place], [place]. [address] Report Submission Date: Dec 23, 2018 3:27:47 PM CDT Patient Study Name: JUNE ROWE Date: Dec 23, 2018 3:02:32 PM CDT Modality Type: DX Gender: F Description: CHEST 2VIEW : 46 Institution: [facility] Physician: FIDEL SIEGEL Examination: PA and lateral chest. History: SOA, WEAKNESS, LETHARGY X 3 DAYS Comparison exam: 01 December 2018 Findings: PA and lateral views of the chest demonstrates a normal cardiac and mediastinal silhouette. Aortic arch vascular calcifications. Chronic interstitial changes. No focal infiltrate. No blunting of the costophrenic margins. Osseous structures are appropriate for age. Impression: Chronic interstitial changes. No acute pulmonary process. Electronically signed on Dec 23, 2018 3:27:47 PM CDT by: Sridhar EUCEAD
[2018-12-23] MEDS ORDERED: IPRATROPIUM/ALBUTEROL SULFATE 3 ML AMPUL.NEB NEB ONE (16:02)
[2018-12-23] MEDS ORDERED: methylPREDNISolone SOD SUCC 125 MG/2 ML VIAL IVP ONE (16:02)
[2018-12-23] MEDS ORDERED: methylPREDNISolone SOD SUCC 125 MG/2 ML VIAL ONE (16:03)
--- NOTE | 2018-12-23 17:26 | Diagnostic Imaging Report ---
FIDEL SIEGEL [facility] [address] [facility] [address] [place] [address]. [id number] Report Submission Date: Dec 23, 2018 5:19:33 PM CDT Patient Study Name: JUNE ROWE Date: Dec 23, 2018 4:48:27 PM CDT Modality Type: CT\SR Gender: F Description: CT PE CHEST : 46 Institution: [facility] Physician: FIDEL SIEGEL CT chest PE protocol History: Short of breath and lethargy Technique: Helically acquired images were obtained through the chest following IV contrast using the pulmonary embolism protocol. 3D MIPS were obtained. Findings: No filling defects are identified within the pulmonary arteries to suggest pulmonary embolism. Thoracic aortic atherosclerosis is present without aneurysm. There is old granulomatous disease. There is no pericardial or pleural effusion. There is mild fullness of the visualized left adrenal gland. Otherwise, visualized structures within the upper abdomen are unremarkable. There is a calcified granuloma at the right lower lobe. Moderate to severe emphysematous findings are present of the lungs bilaterally. There is no pneumothorax. No significant osseous abnormalities are noted. Impression: Moderate to severe emphysema. Old granulomatous disease. No evidence for pulmonary embolism. Electronically signed on Dec 23, 2018 5:19:33 PM CDT by: Michelle EUCEDA
[2018-12-26 07:06] LABS: APPEARANCE,URINE CLEAR (CLEAR); COLOR,URINE YELLOW (YELLOW); OCCULT BLOOD,URINE NEGATIVE (NEGATIVE); UROBILINOGEN URINE 0.2 Eu (0.2-1.0)
== END 2018-12-23 17:49 | disposition home or self-care (01) ==
LOC: ED 14:24
DX: J44.1 Chronic obstructive pulmonary disease with (acute) exacerbation (principal)
CPT/HCPCS: 71046; 71275; 80053; 81002; 82550; 83880; 84484; 85025; 93005; 94640; 96361; 96374; 99285; J2930; J7030; Q9967; S1016

== ENCOUNTER 2019-01-18 12:48 | Emergency (ER) | payer MEDICARE, OTHER ==
--- NOTE | 2019-01-18 13:05 | ED Physician Documentation ---
General Adult - HISTORIAN Historian: patient - HPI Stated Complaint: cough, right chest pain Chief Complaint: General Adult Additional Information: Patient presents to ED with a 5 day history of cough with green sputum production, increasing shortness of breath and right sided pleuritic chest pain. Patient states she has home oxygen and wears it at night and as needed during the day. Over the past 3-4 days she has been wearing 2 liters oxygen 24/7. She is on her last day of Zithromax without any improvement. Onset: days ago (4) Timing: still present Severity: moderate - ROS CONST: denies: fever, sweating EYES/ENT: denies: problems with vision CVS/RESP: chest pain, shortness of breath GI/: denies: abdominal pain, vomiting, nausea MS/SKIN/LYMPH: denies: calf pain, leg swelling, ankle swelling NEURO/PSYCH: denies: headache - PAST HX Past History: COPD Other History: none Surgeries/Procedures: none Allergies/Adverse Reactions: Allergies Allergy/AdvReac Type Severity Reaction Status Date / Time amoxicillin Allergy Mild Rash Verified 12/23/18 14:53 codeine Allergy Mild Rash Verified 12/23/18 14:53 doxycycline Allergy Mild Rash Verified 12/23/18 14:53 lisinopril Allergy Mild Rash Verified 12/23/18 14:53 losartan Allergy Mild Rash Verified 12/23/18 14:53 adhesive tape AdvReac Mild Rash Verified 12/23/18 14:53 Home Medications: Ambulatory Orders Medication Instructions Recorded Fluticasone Propionate 220 Mcg 50 mcg COURTNEY BID 05/01/16 [Flovent Hfa] Montelukast Sodium [Singulair] 10 mg PO HS 05/01/16 Omeprazole [Prilosec] 20 mg PO DAILY 05/01/16 Hydrochlorothiazide 25 mg PO DAILY 04/22/18 Roflumilast [Daliresp] 500 mcg PO DAILY 04/22/18 Albuterol Sulfate [Ventolin] 2.5 mg NEB TID PRN 12/01/18 Cetirizine HCl [Zyrtec] 10 mg PO DAILY 12/01/18 Fluticasone/Vilanterol [Breo 1 puff INH DAILY 12/01/18 Ellipta 100-25 Mcg INH] Guaifenesin [Mucinex] 1,200 mg PO DAILY 12/01/18 Umeclidinium [place] [Incruse 62.5 mcg IH DAILY 12/01/18 Ellipta] Levofloxacin [Levaquin] 750 mg PO DAILY #5 tablet 01/18/19 - SOCIAL HX Smoking History: non-smoker, quit greater than 1 year Alcohol Use: none Drug Use: none - FAMILY HX Family History: No - VITAL SIGNS Vital Signs: Vital Signs Temp Pulse Resp BP Pulse Ox 129/62 12/23/18 17:49 - REVIEWED ASSESSMENTS Nursing Assessment Reviewed: Yes Vitals Reviewed: Yes ED Results Lab/Radiology - Radiology Radiology Impressions: Report Submission Date: Jan 18, 2019 1:48:06 PM CDT Patient Study Name: JUNE ROWE Date: Jan 18, 2019 1:09:53 PM CDT Modality Type: DX Gender: F Description: CHEST 2VIEW : 46 Institution: [facility] Physician: KRISTOFER KRUEGER Examination: PA and lateral chest. History: Evaluate lung cunningham. Impression exam: 23 December 2018 Findings: PA and lateral views of the chest demonstrates a normal cardiac and mediastinal silhouette. Aortic arch vascular calcifications. Chronic interstitial changes. No focal infiltrate. No blunting of the costophrenic margins. Osseous structures are appropriate for age. Impression: Chronic interstitial changes. No acute pulmonary process. Electronically signed on Jan 18, 2019 1:48:06 PM CDT by: Sridhar Rascon - Orders Orders: ED Orders Category Date Time Status Place IV Lock 1T Care 01/18/19 13:04 Ordered CHEST 2VIEW [RAD] Stat Exams 01/18/19 Ordered CBC/PLATELET/DIFF Routine Lab 01/18/19 Ordered CMP Routine Lab 01/18/19 Ordered TROPONIN I Stat Lab 01/18/19 Ordered Ipratropium/Albuterol Sulfate [Duoneb] Med 01/18/19 13:04 Once 3 ml NEB NOW ONE methylPREDNISolone SOD SUCC [SOLU-Medrol] Med 01/18/19 13:04 Once 125 mg IVP NOW ONE General Adult Physical Exam - PHYSICAL EXAM GENERAL APPEARANCE: no distress EENT: EOM palsy NECK: normal inspection, supple RESPIRATORY: no resp distress, wheezes (scattered inspiratory/expiratory bilaterally) CVS: reg rate & rhythm, heart sounds normal ABDOMEN: soft, non-tender BACK: normal inspection, no CVA tenderness EXTREMITIES: non-tender NEURO: oriented X3, CN's nml as tested, motor nml, mood/affect nml Discharge Clincal Impression: Acute bronchitis Qualifiers: Bronchitis organism: unspecified organism Qualified Code(s): J20.9 - Acute bronchitis, unspecified Prescriptions: Levofloxacin [Levaquin] 750 mg PO DAILY #5 tablet Referrals: Edy Salmon MD [Primary Care Provider] - 2 Days Additional Instructions: 1. Stop taking Azithromycin 2. Start Levaquin today 3. Resume home medications as previously prescribed 4. Follow up with PCP on Wednesday. 5. Return to ER for new or worsening symptoms Condition: Stable Disposition: 01 HOME, SELF-CARE Decision to Admit: NO Date of Decison to Admit: 01/18/19 Decision Time: 14:17
[2019-01-18] MEDS: methylPREDNISolone SOD SUCC 125 MG/2 ML VIAL IVP ONE (13:30)
[2019-01-18] MEDS: IPRATROPIUM/ALBUTEROL SULFATE 3 ML AMPUL.NEB NEB ONE (13:30)
[2019-01-18 13:36] LABS: eGFR (Non-African) > 60
[2019-01-18 13:43] LABS: ANISOCYTOSIS 2+ (NEGATIVE); BASOPHILS % 0.4 % (0.0-1.5); BASOPHILS % 1 % (0-2); HYPOCHROMASIA 2+ (NEGATIVE); NEUTROPHILS # 13.1 # k/uL (1.4-7.7); OVALOCYTES 1+ (NEGATIVE); SEGMENTED NEUTROPHILS % 80 % (39-79); STOMATOCYTES 1+ (NEGATIVE)
[2019-01-18 14:41] VITALS: BP 159/80
--- NOTE | 2019-01-18 15:07 | Diagnostic Imaging Report ---
KRISTOFER KRUEGER [facility] [address] [facility] [address] Report Submission Date: Jan 18, 2019 1:48:06 PM CDT Patient Study Name: JUNE ROWE Date: Jan 18, 2019 1:09:53 PM CDT Modality Type: DX Gender: F Description: CHEST 2VIEW : 46 Institution: [facility] Physician: KRISTOFER KRUEGER Examination: PA and lateral chest. History: Evaluate lung cunningham. Impression exam: 23 December 2018 Findings: PA and lateral views of the chest demonstrates a normal cardiac and mediastinal silhouette. Aortic arch vascular calcifications. Chronic interstitial changes. No focal infiltrate. No blunting of the costophrenic margins. Osseous structures are appropriate for age. Impression: Chronic interstitial changes. No acute pulmonary process. Electronically signed on Jan 18, 2019 1:48:06 PM CDT by: Sridhar EUCEDA
== END 2019-01-18 14:37 | disposition home or self-care (01) ==
LOC: ED 12:48
DX: J20.9 Acute bronchitis, unspecified (principal)
CPT/HCPCS: 71046; 80053; 84484; 85025; 94640; 96374; 99283; 99284; J2930; S1016

== ENCOUNTER 2019-02-24 11:29 | Emergency (ER) | payer MEDICARE, OTHER ==
--- NOTE | 2019-02-24 11:55 | ED Physician Documentation ---
Low Back Pain - HISTORIAN Historian: patient - HPI Stated Complaint: low back pain Chief Complaint: Low Back Pain/ Injury Additional Information: Patient presents to ER with low back pain since Wednesday. Patient states she woke up Wednesday with bilateral low back pain. Patient denies any injury. 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 At that time she had a one-time injection of steroids in her back which resolved the issue. She has O2 dependent COPD, wears 2 liters oxygen Onset: days ago (2) Duration: continues in ED Recent Injury: No Context: bending Where: home Severity: mild Quality: sharp Associated Symptoms: denies: fever Worsened By:: upright position Relieved By: supine - ROS CONST: no problems CVS/RESP: denies: chest pain, shortness of breath EYES/ENT: denies: problems with vision MS/SKIN/LYMPH: back pain. denies: calf pain, leg swelling Neuro/Psych: denies: headache GI/: denies: abdominal pain - PAST HX Past History: back pain. denies: back injury Other History: hypertension, other (COPD O2 dependent) Surgeries/Procedures: denies: back surgery Allergies/Adverse Reactions: Allergies Allergy/AdvReac Type Severity Reaction Status Date / Time amoxicillin Allergy Mild Rash Verified 02/24/19 11:50 codeine Allergy Mild Rash Verified 02/24/19 11:50 doxycycline Allergy Mild Rash Verified 02/24/19 11:50 lisinopril Allergy Mild Rash Verified 02/24/19 11:50 losartan Allergy Mild Rash Verified 02/24/19 11:50 adhesive tape AdvReac Mild Rash Verified 02/24/19 11:50 Home Medications: Ambulatory Orders Medication Instructions Recorded Fluticasone Propionate 220 Mcg 50 mcg COURTNEY BID 05/01/16 [Flovent Hfa] Montelukast Sodium [Singulair] 10 mg PO HS 05/01/16 Omeprazole [Prilosec] 20 mg PO DAILY 05/01/16 Hydrochlorothiazide 25 mg PO DAILY 04/22/18 Roflumilast [Daliresp] 500 mcg PO DAILY 04/22/18 Albuterol Sulfate [Ventolin] 2.5 mg NEB TID PRN 12/01/18 Cetirizine HCl [Zyrtec] 10 mg PO DAILY 12/01/18 Fluticasone/Vilanterol [Breo 1 puff INH DAILY 12/01/18 Ellipta 100-25 Mcg INH] Guaifenesin [Mucinex] 1,200 mg PO DAILY 12/01/18 Umeclidinium [place] [Incruse 62.5 mcg IH DAILY 12/01/18 Ellipta] Methylprednisolone [Medrol] 4 mg PO DIRECTED #1 tab.ds.pk 02/24/19 Orphenadrine (Nf) [Norflex] 100 mg PO Q12 PRN #20 tab 02/24/19 - SOCIAL HX Smoking History: non-smoker, quit greater than 1 year Alcohol Use: none Drug Use: none - FAMILY HX Family History: none - VITAL SIGNS Vital Signs: Vital Signs Temp Pulse Resp BP Pulse Ox 98.1 F 64 20 123/60 90 L 02/24/19 11:46 02/24/19 11:46 02/24/19 11:46 02/24/19 11:46 02/24/19 11:46 - REVIEWED ASSESSMENTS Nursing Assessment Reviewed: Yes Vitals Reviewed: Yes ED Results Lab/Radiology - Radiology Radiology Impressions: Report Submission Date: Feb 24, 2019 1:03:32 PM CDT Patient Study Name: JUNE ROWE Date: Feb 24, 2019 11:57:50 AM CDT Modality Type: DX Gender: F Description: L SPINE 2 OR 3 VIEWS : 46 Institution: [facility] Physician: KRISTOFER KRUEGER Lumbar spine History: Back pain AP and lateral projections of the lumbar spine were obtained which demonstrate multilevel facet arthropathy. There is moderate disc space narrowing at L5/S1. There is mild disc space narrowing at L1/2 and L2/3. Vertebral body height is maintained. There is no spondylolisthesis or spondylolysis. There is slight leftward curvature of the lumbar spine. SI joints are patent. Impression: Slight leftward curvature of the lumbar spine. Degenerative findings of the lumbar spine as described. No acute osseous abnormalities are noted. Electronically signed on Feb 24, 2019 1:03:32 PM CDT by: Michelle Lyons - Orders Orders: ED Orders Category Date Time Status LUMBAR SPINE XR 2 OR 3 VIEWS [L SPINE 2 OR 3 VIEWS] [ Exams 02/24/19 Taken RAD] Stat Orphenadrine Citrate [Norflex] Med 02/24/19 12:34 Discontinued 60 mg IM NOW ONE methylPREDNISolone SOD SUCC [SOLU-Medrol] Med 02/24/19 12:34 Discontinued 125 mg IM NOW ONE Low Back Pain/Injury - Physical Exam General Appearance: no acute distress EENT: eye inspection normal Neck: non-tender, painless ROM Resp/CVS: chest non-tender, reg. rate & rhythm, decreased breath sounds (bilaterally) Abdomen: non-tender Back: muscle spasm (L4-L5 bilaterally) Straight Leg Raising: Negative Left, Negative Right Neuro/Psych: oriented x3, motor nml, reflexes nml Skin: warm/dry Extremities: non-tender, normal range of motion, no edema Discharge Clincal Impression: Low back pain Qualifiers: Chronicity: acute Back pain laterality: bilateral Sciatica presence: without sciatica Qualified Code(s): M54.5 - Low back pain Prescriptions: Methylprednisolone [Medrol] 4 mg PO DIRECTED #1 tab.ds.pk Orphenadrine (Nf) [Norflex] 100 mg PO Q12 PRN #20 tab PRN Reason: muscle spasm/back pain Referrals: Edy Salmon MD [Primary Care Provider] - 2 Days Additional Instructions: 1. Take Medrol dose pack as directed 2. Tylenol as needed for pain 3. Norflex every 12 hours as needed for muscle spasm/pain 4. Apply ice to affected area as needed for comfort 5. Schedulers will be contacting you with appointment information for referrals 6. Follow up with PCP within 1 week 7. Return to ER for new or worsening symptoms Condition: Stable Disposition: 01 HOME, SELF-CARE Decision to Admit: NO Date of Decison to Admit: 02/24/19 Decision Time: 13:14
[2019-02-24] MEDS: methylPREDNISolone SOD SUCC 125 MG/2 ML VIAL IM ONE (12:43)
[2019-02-24] MEDS: ORPHENADRINE CITRATE 60 MG/2 ML ML IM ONE (12:43)
[2019-02-24 13:31] VITALS: BP 126/82
--- NOTE | 2019-02-25 00:07 | Diagnostic Imaging Report ---
KRISTOFER KRUEGER [facility] [address] [facility] [address] [address] Report Submission Date: Feb 24, 2019 1:03:32 PM CDT Patient Study Name: JUNE ROWE Date: Feb 24, 2019 11:57:50 AM CDT Modality Type: DX Gender: F Description: L SPINE 2 OR 3 VIEWS : 46 Institution: [facility] Physician: KRISTOFER KRUEGER Lumbar spine History: Back pain AP and lateral projections of the lumbar spine were obtained which demonstrate multilevel facet arthropathy. There is moderate disc space narrowing at L5/S1. There is mild disc space narrowing at L1/2 and L2/3. Vertebral body height is maintained. There is no spondylolisthesis or spondylolysis. There is slight leftward curvature of the lumbar spine. SI joints are patent. Impression: Slight leftward curvature of the lumbar spine. Degenerative findings of the lumbar spine as described. No acute osseous abnormalities are noted. Electronically signed on Feb 24, 2019 1:03:32 PM CDT by: Michelle EUCEDA
== END 2019-02-24 13:26 | disposition home or self-care (01) ==
LOC: ED 11:29
DX: M54.5 Low back pain (principal)
CPT/HCPCS: 72100; 96372; 99284; J2360; J2930

== ENCOUNTER 2019-02-28 22:26 | Emergency (ER) | payer MEDICARE, OTHER ==
[2019-02-28 22:48] VITALS: BP 143/64
[2019-02-28] MEDS ORDERED: KETOROLAC TROMETHAMINE 60 MG/2 ML VIAL IM ONE (22:48)
--- NOTE | 2019-02-28 22:55 | ED Physician Documentation ---
Low Back Pain - HISTORIAN Historian: patient - HPI Stated Complaint: LBP Chief Complaint: Low Back Pain/ Injury Additional Information: Patient is a 68 year old female who presents to the ER with c/o low back pain that started a week ago. Patient was seen in the ER 4 days ago on 02/24/19. Xray of lumbar was negative; she was started on steroids and Norflex; pain had improved but worsened this evening. She states that she was referred to ortho at last ER visit but she still has not heard back. History: history of chronic pain:, back pain Onset: days ago Duration: continues in ED Recent Injury: No Context: other (unsure) Where: home Other Injuries: other (denies) Severity: moderate Quality: similar- prior back pain, other (spasms) Associated Symptoms: denies: incontinence, nausea, vomiting Worsened By:: upright position Relieved By: remaining still - ROS CONST: no problems CVS/RESP: shortness of breath (COPD, oxygen dependent) EYES/ENT: none MS/SKIN/LYMPH: back pain Neuro/Psych: none GI/: denies: abdominal pain - PAST HX Past History: back injury, other (COPD) Other History: hypertension Surgeries/Procedures: back surgery Immunizations: UTD Allergies/Adverse Reactions: Allergies Allergy/AdvReac Type Severity Reaction Status Date / Time amoxicillin Allergy Mild Rash Verified 02/28/19 22:43 codeine Allergy Mild Rash Verified 02/28/19 22:43 doxycycline Allergy Mild Rash Verified 02/28/19 22:43 lisinopril Allergy Mild Rash Verified 02/28/19 22:43 losartan Allergy Mild Rash Verified 02/28/19 22:43 adhesive tape AdvReac Mild Rash Verified 02/28/19 22:43 Home Medications: Ambulatory Orders Medication Instructions Recorded Fluticasone Propionate 220 Mcg 50 mcg COURTNEY BID 05/01/16 [Flovent Hfa] Montelukast Sodium [Singulair] 10 mg PO HS 05/01/16 Omeprazole [Prilosec] 20 mg PO DAILY 05/01/16 Hydrochlorothiazide 25 mg PO DAILY 04/22/18 Roflumilast [Daliresp] 500 mcg PO DAILY 04/22/18 Albuterol Sulfate [Ventolin] 2.5 mg NEB TID PRN 12/01/18 Cetirizine HCl [Zyrtec] 10 mg PO DAILY 12/01/18 Fluticasone/Vilanterol [Breo 1 puff INH DAILY 12/01/18 Ellipta 100-25 Mcg INH] Guaifenesin [Mucinex] 1,200 mg PO DAILY 12/01/18 Umeclidinium [place] [Incruse 62.5 mcg IH DAILY 12/01/18 Ellipta] Methylprednisolone [Medrol] 4 mg PO DIRECTED #1 tab.ds.pk 02/24/19 Orphenadrine (Nf) [Norflex] 100 mg PO Q12 PRN #20 tab 02/24/19 Cyclobenzaprine HCl [Flexeril] 10 mg PO TID PRN #30 tablet 02/28/19 - SOCIAL HX Smoking History: greater than 1 pack/day (quit 1 year ago) Alcohol Use: none Drug Use: none - FAMILY HX Family History: none - VITAL SIGNS Vital Signs: Vital Signs Temp Pulse Resp BP Pulse Ox 97.8 F 96 H 20 143/64 93 02/28/19 22:26 02/28/19 23:20 02/28/19 23:20 02/28/19 23:20 02/28/19 22:26 - REVIEWED ASSESSMENTS Nursing Assessment Reviewed: Yes Vitals Reviewed: Yes ED Results Lab/Radiology - Orders Orders: ED Orders Category Date Time Status Ketorolac Tromethamine [Toradol] Med 02/28/19 22:48 Discontinued 60 mg IM NOW ONE diazePAM [Valium] Med 02/28/19 22:48 Discontinued 5 mg IM NOW ONE Low Back Pain/Injury - Physical Exam General Appearance: alert, mild distress EENT: eye inspection normal, ENT inspection normal, pharynx normal, JEMAL Neck: non-tender, painless ROM Resp/CVS: breath sounds nml, heart sounds nml Back: muscle spasm, other (right sided low back pain on palpation (muscle spasms)) Straight Leg Raising: Positive Right Neuro/Psych: oriented x3, motor nml, sensation nml, mood/affect nml Skin: warm/dry, normal color Extremities: non-tender, no edema Discharge Clincal Impression: Low back pain Prescriptions: Cyclobenzaprine HCl [Flexeril] 10 mg PO TID PRN #30 tablet PRN Reason: muscle spasms Referrals: Edy Salmon MD [Primary Care Provider] - 2 Days Additional Instructions: Take Flexeril 10mg by mouth 3 times a day as needed for muscle spasms Alternate Ibuprofen and Tylenol as needed for pain Take Tramadol 50mg by mouth every 6 hours as needed for breakthrough pain Will send referral to pain/ortho Condition: Stable Disposition: HOME, SELF-CARE Decision to Admit: NO Decision Time: 05:18
== END 2019-02-28 23:15 | disposition home or self-care (01) ==
LOC: ED 22:26
DX: M54.5 Low back pain (principal)
CPT/HCPCS: 96372; 99282; 99283; J1885; J3360

== ENCOUNTER 2019-03-07 08:58 | Outpatient (CLI) | payer MEDICARE, OTHER ==
[2019-03-07 10:08] LABS: BASOPHILS % 0.4 % (0.0-1.5); NEUTROPHILS # 10.3 # k/uL (1.4-7.7)
[2019-03-07 10:23] LABS: APPEARANCE,URINE CLEAR (CLEAR); COLOR,URINE YELLOW (YELLOW); OCCULT BLOOD,URINE NEGATIVE (NEGATIVE); UROBILINOGEN URINE 0.2 Eu (0.2-1.0)
[2019-03-07 10:26] LABS: eGFR (Non-African) > 60
--- NOTE | 2019-03-24 07:07 | CONSULTATION REPORT ---
DATE OF VISIT: 03/07/2019 CHIEF COMPLAINT: Low back pain. HISTORY OF PRESENT ILLNESS: Ms. Capone presents for evaluation of her low back pain today. She reports that it started spontaneously approximately two weeks ago. She did visit the ER initially and x-rays were done, and she was given a steroid injection and a muscle relaxer while in the ER. They prescribed a muscle relaxer and a steroid pack upon her discharge from the ER then. She then went back to the ER approximately one week ago, again for her low back pain where she received another injection for pain and the muscle relaxer different from the one she had gotten the week before. They did end up prescribing her tramadol and Flexeril and discharged from the emergency department then. The patient tells me that her low back pain is constant, aching to sharp in nature. It does radiate around into her abdomen. She denies any lower extremity radiation, numbness, tingling, weakness in her legs, urinary/bowel incontinence or saddle anesthesia. Her right side is worse than her left. Today she is telling me that she has had a fever over the last three nights, last night it was as high as 102.4. The patient does have some right-sided flank and abdominal pain. She denies nausea, vomiting, constipation, diarrhea or any other urinary symptoms. She denies any blood in her stools or blood in her urine. The patient has tried alternating cool and warm packs with some improvement. Nothing seems to make her pain worse. It is just worse in the evenings and at nighttime. PAST MEDICAL HISTORY: COPD, hypertension, hyperlipidemia, asthma, depression and a history of pneumonia. PAST SURGICAL HISTORY: Uterine ablation, bilateral total knee replacements and she has also had cataract surgery. ALLERGIES: Include doxycycline, amoxicillin, losartan, codeine, lisinopril, adhesive tapes and other allergies include dust. CURRENT MEDICATIONS: Sertraline 100 mg daily, Daliresp 500 mg one tab p.o. daily, omeprazole 20 mg one p.o. daily, Singulair 10 mg one tab p.o. daily, lovastatin 10 mg one tab p.o. daily, diltiazem 120 mg one tab p.o. daily, gabapentin 300 mg one p.o. t.i.d., hydrochlorothiazide 25 mg q.day, fluticasone 50 mcg spray one spray each nostril two times daily, ProAir HFA inhaler two puffs every four hours p.r.n., INCRUSE ELPT 62.5 mcg one puff daily, Brio Ellipta 100 mcg/25 mcg one puff daily, albuterol sulfate nebulized solution 2.5 mg/3 ml one vial three times daily p.r.n., Mucinex 1200 mg one tab daily, Zyrtec 10 mg one tab daily and then she is also on oxygen two liters at rest and three liters with activity. SOCIAL HISTORY: The patient is a former smoker. She quit in 1998. Up until that point she smoked for approximately 30 years. ETOH none. Illicit drugs none. Marital status and occupation retired. PAST FAMILY HISTORY: Mother with DM type 2, hypertension, hyperlipidemia and CVA. Father had emphysema and a sibling with DM type 2. REVIEW OF SYSTEMS: A complete 14-point review of systems was performed. Positive for fever, shortness of breath with activity, bronchitis, continuous O2, anxiety/depression and low back pain. Please see scanned documentation for full review of systems. IMAGING: Reviewed. The patient did have a lumbar spine x-ray performed on February 24, 2019 at [facility] Emergency Department. Impression: Slight leftward curvature of the lumbar spine. Lumbar DDD. OBJECTIVE: General: This is an elderly female patient presenting in no acute distress. Vital Signs: The patient is 5 feet 7 inches tall, weighs 163 pounds. Temperature is 97.6, pulse 108, respiratory rate is 22, blood pressure is 117/59 with an SAO2 of 92% on three liters per nasal cannula. She is rating her pain a 9/10 today. Psych: She is alert and oriented x3. She is calm, pleasant and cooperative. HEENT: She is normocephalic and atraumatic. Pupils are equal and round without miosis. Sclerae are clear. Trachea is midline. No palpable cervical lymphadenopathy. CV: Normal S1, S2. RRR. No gallop, rubs or murmurs. No lower extremity edema. Pulmonary: Coarse cough throughout the exam. Coarse rales bilateral upper lobes cleared with cough, diminished posteriorly. O2 at two liters per nasal cannula. /GI: Bowel sounds are present in all four quadrants. Abdomen is soft and nondistended. The patient has tenderness to palpation in the right lower quadrant. No guarding or rebound. The patient does have right CVA tenderness. Musculoskeletal: There is no obvious deformity of the lumbar spine. The patient is slightly kyphotic in the thoracic spine. The patient has full lumbar flexion and full lumbar extension. Bilateral Marks's causes axial low back pain only. She is tender to palpation over the bilateral L3-4, L4-5 and L5-S1 as well as in the lumbar paraspinals. Bilateral lower extremity strength is 5/5 in all areas. Seated straight leg raise is negative for low back pain, 2+ patellar reflexes bilaterally. Neuro: Cranial nerves II through XII are grossly intact with no focal deficits. She does walk with a slightly antalgic gait. IMPRESSION: 1. Right flank pain. 2. Low back pain. 3. Febrile illness. 4. Lumbar facet arthrosis. 5. Lumbar DDD. PLAN: 1. The patient was sent for urinalysis, which was negative for any abnormalities. 2. She was also sent for CBC with diff and CMP. White blood count was 12.6 and hemoglobin 9.2, hematocrit 29.2, platelets 252,000. Sodium was 137, potassium 3.1, chloride was 97; none of which I was overly concerned about related to urinary tract infection or nephrolithiasis. I do want the patient to follow up with her primary care physician regarding her coarse cough and her slight elevation in her white blood cell count. 3. Today I have ordered the patient to do a home exercise program for her low back pain. I have given her a prescription for naproxen 500 mg one p.o. b.i.d. #60 with two refills. The patient was advised to eat with this and if she develops any GI symptoms she is to stop and notify the clinic. 4. I have ordered an MRI of the lumbar spine without contrast and requested that the patient bring a disk of those studies so that we can review with her. 5. The patient is to follow up with me once her MRI is complete so that we can go over the results and determinate an appropriate plan of care. The patient verbalizes understanding and agrees with the current treatment plan. BILLY Herrmannurse Practitioner /[employer] [id number] /[id number] jrd cc: Edy Salmon M.D. [place]
== END 2019-03-07 09:58 ==
LOC: OUT 08:58
PROVIDERS: ATTEND Nurse Practitioner Adult Health
DX: M47.816 Spondylosis without myelopathy or radiculopathy, lumbar region (principal); M51.36 Other intervertebral disc degeneration, lumbar region; R50.9 Fever, unspecified; R10.9 Unspecified abdominal pain
CPT/HCPCS: 36415; 80053; 81002; 85025; 99203; G0463

== ENCOUNTER 2019-04-11 13:57 | Outpatient (CLI) | payer MEDICARE, OTHER ==
--- NOTE | 2019-04-14 15:20 | OP Clinic Progress Note ---
DATE OF VISIT: 04/11/2019 CHIEF COMPLAINT: Low back pain. HISTORY OF PRESENT ILLNESS: Ms. Capone is here for follow-up low back pain. Her low back pain is constant aching to sharp in nature. It does radiate around into her hips and abdomen. She denies any lower extremity radiation, numbness, tingling, weakness in her legs, urinary/bowel incontinence or saddle anesthesias. The right side of her back is worse than the left. I had ordered an MRI at the last visit and the patient has completed that and it was reviewed today with the patient. The patient continues on naproxen with some improvement in pain symptoms. She denies any medication side effects or concerns at this time. IMAGING REVIEWED: The patient completed the lumbar spine MRI without contrast on 03/24/2019 at [facility]. FINDINGS: At L1-L2, there is a small disc bulge without spinal canal or neural foraminal stenosis. At L2-L3, a small disc bulge is present without spinal canal or neural foraminal stenosis. There is facet osteoarthrosis. At L3-L4, a small disc bulge is present without spinal canal or neural foraminal stenosis. There is facet osteoarthritis. At L4-L5, there is a disc bulge and facet hypertrophy which caused mild spinal canal stenosis. There is advanced facet osteoarthritis. At L5-S1, there is a small disc bulge and facet osteoarthritis is present without significant canal or neural foraminal stenosis. A perineural cyst is present in the mid sacral spine. REVIEW OF SYSTEMS: A complete 14-point review of systems was reviewed from date of service 03/07/2019 and remains unchanged. PHYSICAL EXAMINATION: General: This is a well-developed, well-nourished elderly female patient presenting in [facility]. Vital Signs: Temperature is 97.3, pulse is 108, respiratory rate is 22, blood pressure 142/74 with an SaO2 of 93% on 3 liters. Pain is rated 6-7/10 today. Psych: She is alert and oriented x3. She is calm, pleasant and cooperative. HEENT: She is normocephalic and atraumatic. Pupils are equal and round without miosis. Sclerae clear. CV: Normal S1, S2. Regular rate and rhythm. No gallops, rubs or murmurs. Cardiovascular: No lower extremity edema. Pulmonary: Nonlabored respirations at rest. The patient is on O2 per nasal cannula at 3 liters. She is clear throughout; however, diminished at posterior bases bilaterally. GI: Abdomen is soft, round, nondistended and nontender with bowel sounds present in all four quadrants. Musculoskeletal: There is no deformity on inspection of the lumbar spine. The patient is tender to palpation over the bilateral L3-L4, L4-L5 and L5-S1 facets as well as in the lower paraspinal muscles. Neurologic: Cranial nerves II through XII are grossly intact. She does walk with a slightly antalgic gait. ASSESSMENT: 1. Low back pain. 2. Lumbar DDD. 3. Lumbar facet arthrosis. PLAN: 1. I have ordered facet joint injections of the bilateral L3-L4, L4-L5 and L5-S1 facets with Dr. Wells. 2. I have requested her most recent PFTs and pulmonary clearance to undergo MAC anesthesia for pain procedures. This was written on a prescription and the patient is going to see her shipping checker next month. 3. 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 The patient verbalizes understanding and agrees to the current treatment plan. BILLY Herrmannurse Practitioner /[employer] [id number] Job #[id number] cjd cc: Edy Salmon MD MTDD
== END 2019-04-11 14:57 ==
LOC: OUT 13:57
PROVIDERS: ATTEND Nurse Practitioner Adult Health
DX: M46.96 Unspecified inflammatory spondylopathy, lumbar region (principal); M51.36 Other intervertebral disc degeneration, lumbar region
CPT/HCPCS: 99213; G0463

== ENCOUNTER 2019-05-09 14:10 | Outpatient (CLI) | payer MEDICARE, OTHER ==
[~2019-05-09 14:10] MED LIST changes: +BUPIVACAINE HCL 0.5% (5MG/ML) PF 10ML VIAL IV ONE; +IOHEXOL 300 MG/ML BOTTLE 50 ML ONE; -LACTATED RINGERS 1,000 ML IV.SOLN IV ONE; -LIDOCAINE HCL 2% PF 100MG/5ML VIAL IJ ONE; +Lidocaine 1% 5ml 10 MG/ML VIAL ONE; -PROPOFOL 200 MG/20 ML VIAL IV ONE; +methylPREDNISolone ACETATE 80 MG/ML VIAL IM ONE
== END 2019-05-09 16:11 ==
LOC: OUT 14:10
DX: M47.816 Spondylosis without myelopathy or radiculopathy, lumbar region (principal); M54.5 Low back pain
CPT/HCPCS: 64493; 64494; 64495; J1040; J3490